=== PATIENT | male | born 1985 ===

== ENCOUNTER 2017-04-13 13:09 | Inpatient (IN) | payer MEDICAID, OTHER ==
--- NOTE | 2017-04-13 14:52 | PCM.PSYCH ---
Initial Psychiatric Evaluation - Initial Psychiatric Evaluation Type of Admission: Voluntary Legal Status: Capacity Chief Complaint (in patient's own words): "Withdrawing" History of Present Illness and Precipitating Events: The pt is seen, chart reviewed and case discussed. He is known to the contract writer from a recent consult. 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 He admits to drinking 15 shots daily x1 year but started first time at age 20. He reports significant wdw sxs and was given librium twice. He denies drug use but smokes 1 ppd cig. Feels somewhat depressed and very anxious. Past psych hx: Denies Medical hx: denies Family psych hx: Denies Current Medications: Active Medications Generic Name Dose Route Start Last Admin Trade Name Freq PRN Reason Stop Dose Admin Clonidine HCl 0.1 mg 04/13/17 14:47 Catapres PO Q4H PRN Symptoms of alcohol withdrawl Folic Acid 1 mg 04/13/17 15:00 Folic Acid PO DAILY DEZ Lorazepam 2 mg 04/13/17 15:00 Ativan PO 04/18/17 14:59 .TAPER DEZ Taper Lorazepam 1 mg 04/13/17 14:47 Ativan PO Q4H PRN Symptoms of alcohol withdrawl Multivitamins 1 tab 04/13/17 15:00 Hexavitamin PO DAILY DEZ Thiamine HCl 100 mg 04/13/17 15:00 Vitamin B1 Tab PO DAILY DEZ Trazodone HCl 100 mg 04/13/17 14:47 Desyrel PO HS PRN Insomnia Past Psychiatric History - Past Psychiatric History Previous Treatment History: None Pertinent Medical Hx (Current Medical&Sleep Prob, Allergies): Allergies Allergy/AdvReac Type Severity Reaction Status Date / Time No Known Allergies Allergy Verified 04/13/17 13:33 No Known Home Med 04/13/17 Review of Systems - Neurological Neurological: UNREMARKABLE - Psychiatric Psychiatric: Abnormal Sleep Pattern, Anxiety. absent: Hallucinations, Homicidal Ideation, Paranoia, Suicidal Ideation Mental Status Examination - Personal Presentation Personal Presentation: Looks older than stated age - Affect Affect: Constricted - Motor Activity Motor Activity: Calm - Reliability in Providing Information Reliability in Providing Information: Good - Speech Speech: Organized - Mood Mood: Anxious - Formal Thought Process Formal Thought Process: No Impairment - Cognitive Functions Orientation: Person, Place, Situation, Time Sensorium: Alert Attention/Concentration: Attentive Estimate of Intelligence: Average Judgement: Intact, as evidence by: Insight regarding need for hospitalization Memory: Recent intact, as evidence by: Ability to recall events of the day, Remote intact, as evidenced by: Abilit to recall sig. life events - Risk Risk: Seizure, Withdrawal, Diminished functioning - Strength & Assets Inventory Strength & Assets Inventory: Employment history, Cooperative - Limitations Limitations: Living alone DSM 5 DX - DSM 5 DSM 5 Diagnosis: Alcohol withdrawal Alcohol use d/o - severe - Recommended/Plan of Treatment Treatment Recommendations and Plan of Treatment: Ativan detox Gabapentin for augmentation As needed meds and vitamins Attend groups and activities [place] for abstinence and CBT for relapse prevention Support and psychoeducation Consider and encourage MAT Refer to after care 33 min Projected ELOS: 4-5 days Prognosis: good w treatment - Smoking Cessation Smoking Cessation Initiated: Yes
--- NOTE | 2017-04-13 14:54 | PCM.BM ---
<RamboMechelleCarissa Karl - Last Filed: 04/13/17 14:52> Treatment Plan Problems - Problems identified on initial assessmt Alcohol use disorder Date Initiated: 04/13/17 Time Initiated: 14:50 Assessment reference: NA Treatment assets and liabiliti Patient Assests: cooperative, insightful, negotiates basic needs Patient Liabilities: poor support system, substance abuse - Milieu Protocol Maintain good personal hygiene: daily Encourage regular showers, daily Remind patient to perform daily oral care, daily Assist patient to perform ADL's, every shift Encourage regular showers, every shift Remind patient to perform daily oral care, every shift Assist patient to perform ADL's Maintain personal safety: daily Educate patient to report safety concerns to staff, daily Monitor environment for contraband/sharps, every shift Educate patient to report safety concerns to staff, every shift Monitor environment for contraband/sharps Medication safety: Monitor for expected outcome, potential side effects: daily, every shift, Assess barriers to learning: daily, every shift, Assess readiness for medication education: daily, every shift Milieu Narrative: Ativan detox Gabapentin for augmentation As needed meds and vitamins Attend groups and activities [place] for abstinence and CBT for relapse prevention Support and psychoeducation Consider and encourage MAT Refer to after care 33 min Discharge/Continuing Care - Treatment Team Participation Patient/Family/SO Statement: Ativan detox Gabapentin for augmentation As needed meds and vitamins Attend groups and activities [place] for abstinence and CBT for relapse prevention Support and psychoeducation Consider and encourage MAT Refer to after care 33 min <Fernando Lainez - Last Filed: 04/13/17 23:22> - Diagnosis (1) Alcohol dependence Status: Acute Interventions: 04/13/17 23:22 * Assess 7x/week regarding severity of withdrawal * Educate regarding risks, benefits, side effects and alternatives of medications * Use Motivational Interviewing for abstinence * Use CBT for relapse prevention * Medication management for withdrawal symptoms * Encourage medication assisted treatment *
--- NOTE | 2017-04-13 15:01 | C.PDOC ---
History Of Present Illness 31 year old male was brought to the emergency department by EMS from [facility] for direct admission for detox of alcohol. Patient denies physical complaints, suicidal ideations, or homicidal ideations. Chief Complaint (Nursing): Substance Abuse History Per: Patient, EMS History/Exam Limitations: no limitations Suicide/Self Injury Attempted (Context): None Severity: None Pain Scale Rating Of: 0 Associated Symptoms: denies: Suicidal Thoughts, Suicidal Plan Involuntary Hold By: None Recent travel outside of the [place]: No Additional History Per: Prior Records Past Medical History Reviewed: Historical Data, Nursing Documentation, Vital Signs Vital Signs: Last Vital Signs Temp 98.6 F 04/13/17 19:55 Pulse 88 04/13/17 19:55 Resp 18 04/13/17 19:55 BP 129/86 04/13/17 19:55 Pulse Ox 98 04/13/17 19:55 - Medical History PMH: Denies: Chronic Kidney Disease Family History: States: Unknown Family Hx - Social History Hx Alcohol Use: Yes Hx Substance Use: No - Immunization History Hx Tetanus Toxoid Vaccination: No Hx Influenza Vaccination: No Hx Pneumococcal Vaccination: No Review Of Systems Constitutional: Negative for: Fever, Chills Cardiovascular: Negative for: Chest Pain, Palpitations Respiratory: Negative for: Shortness of Breath Gastrointestinal: Negative for: Nausea, Vomiting, Abdominal Pain, Diarrhea Psych: Negative for: Suicidal ideation Physical Exam - Physical Exam Appears: Non-toxic, No Acute Distress Skin: Warm, Dry Head: Atraumatic Eye(s): bilateral: Normal Inspection, EOMI Oral Mucosa: Moist Neck: Supple Chest: Symmetrical, No Deformity Cardiovascular: Rhythm Regular Respiratory: Normal Breath Sounds, No Rhonchi, No Wheezing Gastrointestinal/Abdominal: Soft, No Tenderness, No Distention, No Guarding, No Rebound Neurological/Psych: Oriented x3, Normal Speech, Normal Cognition, Normal Cranial Nerves, Normal Motor, Normal Sensation ED Course And Treatment O2 Sat by Pulse Oximetry: 98 (room air ) Disposition - Disposition Disposition: HOSPITALIZED Disposition Time: 16:50 Condition: STABLE - Clinical Impression Clinical Impression: Alcohol dependence - Scribe Statement The provider has reviewed the documentation as recorded by the Scribe Cynthia Harp All medical record entries made by the Scribe were at my direction and personally dictated by me. I have reviewed the chart and agree that the record accurately reflects my personal performance of the history, physical exam, medical decision making, and the department course for this patient. I have also personally directed, reviewed, and agree with the discharge instructions and disposition.
[2017-04-13] MEDS: Multiple Vitamins Tab PO SCH (15:41)
[2017-04-13] MEDS: Bacitracin 500 Units/gm Oint Foilpak UD TOP SCH (22:41)
[2017-04-14] MEDS: Multiple Vitamins Tab PO SCH (09:37)
[2017-04-14] MEDS: Bacitracin 500 Units/gm Oint Foilpak UD TOP SCH ×4 (10:13→22:30)
--- NOTE | 2017-04-14 22:50 | PCM.PYCHPN ---
Psychiatric Progress Note - Psychiatric Progress Note Patient seen today, length of contact: 17 minutes Problems Identified/Issues Discussed: The pt is seen, chart reviewed, case discussed with staff. The pt is compliant with medications and reports no side-effects. Symptoms such as tremors are still present with Increase in HR, no nystagmus, no A/V/H, but needs more time to stabilize. After care discussed, support and psychoeducation given. Diagnostic Results: no new labs DSM 5 Symptoms Update: Alcohol withdrawal Alcohol use d/o - severe Medication Change: Yes (ativan taper) Medical Record Reviewed: Yes Mental Status Examination - Cognitive Function Orientation: Person, Place, Situation, Time Memory: Intact Attention: WNL Concentration: WNL Association: [facility] Fund of Knowledge: [facility] Decription of patient's judgement and insights: FAIR/FAIR - Mood Mood: Anxious - Affect Affect: Constricted - Speech Speech: Appropriate - Formal Thought Process Formal Thought Process: No Impairment - Suicidal Ideation Suicidal Ideation: No - Homicidal Ideation Homicidal Ideation: No Goal/Treatment Plan - Goal/Treatment Plan Need for Continued Stay: Discharge may exacerbated symptoms Progress Toward Problem(s) and Goals/Treatment Plan: Continue medications Support and psychoeducation daily Attend groups and activities daily After care planning by ELIAN Estimated Date of D/C: 04/17/17 - Smoking Cessation Smoking Cessation Initiated: Yes
[2017-04-15] MEDS: Multiple Vitamins Tab PO SCH (09:30)
[2017-04-15] MEDS: Bacitracin 500 Units/gm Oint Foilpak UD TOP SCH ×3 (09:32→17:38)
--- NOTE | 2017-04-15 18:18 | PCM.PYCHPN ---
Psychiatric Progress Note - Psychiatric Progress Note Patient seen today, length of contact: 17 minutes Patient Chief Complaint: I'M FEELING BETTER" Problems Identified/Issues Discussed: The pt is seen, chart reviewed, case discussed with staff. He stated that he is feeling"better." The pt is compliant with medications and reports no side-effects. Symptoms such as tremors are still present with Increase in HR, no nystagmus, no A/V/H, but needs more time to stabilize. After care discussed, support and psychoeducation given. Diagnostic Results: no new labs DSM 5 Symptoms Update: Alcohol withdrawal Alcohol use d/o - severe Medication Change: Yes (ativan taper) Medical Record Reviewed: Yes Mental Status Examination - Cognitive Function Orientation: Person, Place, Situation, Time Memory: Intact Attention: WNL Concentration: WNL Association: WNL Fund of Knowledge: WN Decription of patient's judgement and insights: FAIR/FAIR - Mood Mood: Anxious - Affect Affect: Constricted - Speech Speech: Appropriate - Formal Thought Process Formal Thought Process: No Impairment Psychotic Thoughts and Behaviors: no A/V/H - Suicidal Ideation Suicidal Ideation: No - Homicidal Ideation Homicidal Ideation: No Goal/Treatment Plan - Goal/Treatment Plan Need for Continued Stay: Discharge may exacerbated symptoms Progress Toward Problem(s) and Goals/Treatment Plan: Continue medications Support and psychoeducation daily Attend groups and activities daily After care planning by ELIAN Estimated Date of D/C: 04/17/17 - Smoking Cessation Smoking Cessation Initiated: Yes
[2017-04-16] MEDS: Multiple Vitamins Tab PO SCH (10:16)
[2017-04-16] MEDS: Bacitracin 500 Units/gm Oint Foilpak UD TOP SCH ×3 (12:20→21:40)
--- NOTE | 2017-04-16 15:09 | PCM.PYCHPN ---
Psychiatric Progress Note - Psychiatric Progress Note Patient seen today, length of contact: 17 minutes Patient Chief Complaint: "I am feeling good" Problems Identified/Issues Discussed: The pt is seen, chart reviewed, case discussed with staff. Pt reports sleeping well. Pt plans to attend AA meetings after discharge. The pt is compliant with medications and reports no side-effects. Symptoms are improving but needs more time to stabilize. After care discussed, support and psychoeducation given. Medication Change: Yes (ativan taper) Medical Record Reviewed: Yes Mental Status Examination - Cognitive Function Orientation: Person, Place, Situation, Time Memory: Intact Attention: WNL Concentration: WNL Association: WNL Fund of Knowledge: WNL - Mood Mood: Anxious - Affect Affect: Constricted - Speech Speech: Appropriate - Formal Thought Process Formal Thought Process: No Impairment - Suicidal Ideation Suicidal Ideation: No - Homicidal Ideation Homicidal Ideation: No Goal/Treatment Plan - Goal/Treatment Plan Need for Continued Stay: Discharge may exacerbated symptoms Progress Toward Problem(s) and Goals/Treatment Plan: Ativan detox Gabapentin for augmentation Continue medications Support and psychoeducation daily Attend groups and activities daily After care planning by ELIAN Estimated Date of D/C: 04/17/17
[2017-04-17 06:41] VITALS: RESP 18; O2SAT 97
--- NOTE | 2017-04-17 08:36 | PCM.PYCHDC ---
Mental Status Examination - Mental Status Examination Orientation: Person, Place, Situation, Time Memory: Intact, Recent Mood: Anxious Affect: Constricted Speech: Appropriate Attention: WNL Concentration: WNL Association: WNL Fund of Knowledge: WNL Formal Thought Process: No Impairment Suicidal Ideation: No Current Homicidal Ideation?: No Discharge Summary - Discharge Note Consultations:: List each consultation separately and include: 1. Reason for request. 2. Findings. 3. Follow-up Summary of Hospital Course include:: 1. Description of specific treatment plan utilized for patients during their course of treatmen. 2. Summarize the time- course for resolution of acute symptoms and/or regressed behaviors. 3. Describe issues identified and worked on during hospitalization. 4. Describe medication utilized. 5. Describe medical problems identified and treated. 6. Reassessment of suicide risk Summary of Hospital Course: The pt is seen, chart reviewed and case discussed. He is known to the scientific technical writer from a recent consult. He is now transferred from [facility] ED for alcohol detox He is a 31 yo LM, single with 2 children (aged 5 and 7 who are with their mo), pt lives alone, currently unemployed, was a [employer]. [employer]. He admits to drinking 15 shots daily x1 year but started first time at age 20. He reports significant wdw sxs and was given librium twice. He denies drug use but smokes 1 ppd cig. Feels somewhat depressed and very anxious. Past psych hx: Denies Medical hx: denies Family psych hx: Denies The pt was admitted and started on treatment with psychotherapy, support, psychoeducation and medications. Pt reports sleeping well and denies any nausea or tremors. Pt plans to attend AA meetings and [facility] in [place] 3 times a week upon discharge. [place] and CBT used. The pt attended groups and activities, as well as milieu therapy. All the risks and benefits of medications are discussed and the patient understood and agreed. The pt improved with the treatments provided. After care discussed with the patient. - Diagnosis (1) Alcohol dependence Status: Acute - Final Diagnosis (DSM 5) Condition upon Discharge: STABLE DSM 5: Alcohol withdrawal Alcohol use d/o - severe Disposition: HOME/ ROUTINE Follow-up Treatment Plan: Continue below medications after discharge. Follow after care plan as discussed. Use relapse prevention skills Return to ER or call 911 if suicidal, homicidal or symptoms relapse. Stay away from stress, alcohol and drugs. See primary doctor once a year. Prescriptions/Medication Reconciliation: Gabapentin [Neurontin] 300 mg PO TID #90 cap traZODone [Desyrel] 100 mg PO HS PRN #30 tab PRN Reason: Insomnia
[2017-04-17] MEDS: Bacitracin 500 Units/gm Oint Foilpak UD TOP SCH (09:40)
[2017-04-17] MEDS: Multiple Vitamins Tab PO SCH (09:40)
[2017-04-17 11:04] VITALS: BP 117/75; PULSE 89; TEMP 98.3
== END 2017-04-17 11:25 | disposition home or self-care (01) | DRG 751 ==
LOC: C.ER 13:09 → C.7D 13:37
PROVIDERS: ADMIT Psychiatry & Neurology Psychiatry; ATTEND Psychiatry & Neurology Psychiatry
PROC: HZ2ZZZZ Detoxification Services for Substance Abuse Treatment (ICD-10-PCS; principal; 2017-04-13)
PROC: HZ46ZZZ Group Counseling for Substance Abuse Treatment, Psychoeducation (ICD-10-PCS; 2017-04-13)
PROC: HZ59ZZZ Individual Psychotherapy for Substance Abuse Treatment, Supportive (ICD-10-PCS; 2017-04-13)
DX: F10.239 Alcohol dependence with withdrawal, unspecified (principal); F17.210 Nicotine dependence, cigarettes, uncomplicated

== ENCOUNTER 2017-04-29 22:34 | Observation (INO) | payer MEDICAID ==
--- NOTE | 2017-04-29 23:06 | C.PDOC ---
History Of Present Illness 31 year old male who presents to the ER with acute ETOH intoxication. Patient was seen at [facility] at approximately 15:30 today and told to come to [facility] for detox, however, on arrival patient refuses detox. Denies physical complaints at this time. Chief Complaint (Nursing): Psychiatric Evaluation History Per: Patient History/Exam Limitations: no limitations Onset/Duration Of Symptoms: Hrs Current Symptoms Are (Timing): Still Present Suicide/Self Injury Attempted (Context): None Modifying Factor(s): Alcohol Associated Symptoms: denies: Depression, Suicidal Thoughts, Suicidal Plan Involuntary Hold By: None Recent travel outside of the [place]: No Past Medical History Reviewed: Historical Data, Nursing Documentation, Vital Signs Vital Signs: Last Vital Signs Temp 98 F 04/30/17 02:38 Pulse 82 04/30/17 02:38 Resp 20 04/30/17 02:38 BP 150/79 04/30/17 02:38 Pulse Ox 96 04/30/17 05:20 - Medical History PMH: Anxiety, Depression Surgical History: No Surg Hx - [facility] Procedures DETOXIFICATION SERVICES FOR SUBSTANCE ABUSE TREATMENT (04/13/17) GROUP ORIENTAL RUG STRETCHER FOR SUBSTANCE ABUSE TREATMENT, PSYCHOEDUCATION (04/13/17) INDIV PSYCHOTHERAPY FOR SUBSTANCE ABUSE TREATMENT, SUPPORT (04/13/17) Family History: States: Unknown Family Hx - Social History Hx Alcohol Use: Yes Hx Substance Use: No - Immunization History Hx Tetanus Toxoid Vaccination: No Hx Influenza Vaccination: No Hx Pneumococcal Vaccination: No Review Of Systems Constitutional: Negative for: Fever, Chills Gastrointestinal: Negative for: Nausea, Vomiting, Diarrhea Physical Exam - Physical Exam Appears: Non-toxic, No Acute Distress, Other (ETOH on breath) Skin: Normal Color, Warm, Dry Head: Atraumatic, Normacephalic Oral Mucosa: Moist Chest: Symmetrical, No Tenderness Cardiovascular: Rhythm Regular, No Murmur Respiratory: Normal Breath Sounds, No Rales, No Rhonchi, No Wheezing Gastrointestinal/Abdominal: Soft, No Tenderness Neurological/Psych: Oriented x3, Normal Speech, Normal Cognition, Other (No focal deficits) ED Course And Treatment - Laboratory Results Result Diagrams: 04/29/17 23:40 04/29/17 23:40 O2 Sat by Pulse Oximetry: 96 (Room air) Pulse Ox Interpretation: Normal Progress Note: Blood work and urinalysis ordered. ED OBSERVATION Date of observation admission: 04/29/17 Time of observation admission: 23:15 - Observation admission statement Patient is being placed in observation because:: Acute ETOH intoxication - Goals of Observation Goals of observation are:: Sobriety Disposition Counseled Patient/Family Regarding: Diagnosis - Disposition Disposition Time: 07:00 Condition: STABLE - POA Present On Arrival: None - Clinical Impression Clinical Impression: Alcohol intoxication - Scribe Statement The provider has reviewed the documentation as recorded by the Scribnoé Quiñonez All medical record entries made by the Rayaibnoé were at my direction and personally dictated by me. I have reviewed the chart and agree that the record accurately reflects my personal performance of the history, physical exam, medical decision making, and the department course for this patient. I have also personally directed, reviewed, and agree with the discharge instructions and disposition. Physician Patient Turnover Patient Signed Over To: Kati Stephens Handoff Comments: pending sobriety
[2017-04-29 23:37] LABS: RBC URINE < 1 /hpf (0-3); URINE BILIRUBIN NEGATIVE (NEGATIVE); URINE BLOOD NEGATIVE (NEGATIVE); URINE COLOR Straw (YELLOW); URINE GLUCOSE (UA) NORMAL (Normal); URINE KETONE NEGATIVE (NEGATIVE); URINE LEUKOCYTE ESTERASE NEG Leu/uL (Negative); URINE PROTEIN NEGATIVE (NEGATIVE); URINE UROBILINOGEN NORMAL mg/dL (0.2-1.0); WBC URINE < 1 /hpf (0-5)
[2017-04-29 23:45] LABS: BASO # 0.1 K/uL (0.0-0.2); BASO % 0.7 % (0.0-2.0); EOS # 0.6 K/uL (0.0-0.7); EOS % 5.2 % (0.0-4.0); LYMPH # 3.4 K/uL (1.0-4.3); LYMPH % 30.3 % (20.0-40.0); MEAN CELL VOLUME 93.6 fL (80.0-94.0); MEAN CORPUSCULAR HEMOGLOBIN 32.7 pg (27.0-31.0); MEAN PLATELET VOLUME 7.4 fL (7.2-11.7); MONO # 0.5 K/uL (0.0-0.8); MONO % 4.5 % (0.0-10.0); NRBC % 0.1 % (0.0-2.0); RED CELL DISTRIBUTION WIDTH 13.4 % (11.5-14.5); WHITE BLOOD COUNT 11.3 K/uL (4.8-10.8)
[2017-04-29 23:53] LABS: CHLORIDE 99 mmol/L (98-107)
[2017-04-29 23:54] LABS: POTASSIUM 3.3 mmol/L (3.6-5.2); SODIUM 143 mmol/L (132-148)
[2017-04-29 23:56] LABS: AST/SGOT 144 U/L (17-59); BILIRUBIN,TOTAL 0.8 mg/dL (0.2-1.3); CARBON DIOXIDE 27 mmol/L (22-30); GFR AFRICAN-AMERICAN > 60
[2017-04-29 23:57] LABS: ALB/GLOB RATIO 1.2 (1.0-2.1); ALKALINE PHOSPHATASE 108 U/L (38-126); ALT/SGPT 179 U/L (21-72); BLOOD UREA NITROGEN 3 mg/dL (9-20); GLUCOSE,RANDOM 116 mg/dL (75-110)
[2017-04-30 00:07] LABS: ALCOHOL SERUM 434 mg/dl (0-10)
[2017-04-30] MEDS ORDERED: Potassium Chloride 20 mEq ER Tab PO STA (02:17)
[2017-04-30] MEDS ORDERED: Potassium Chloride 20 mEq ER Tab PO ONE (02:23)
[2017-04-30 05:53] VITALS: TEMP 97.2
[2017-04-30 08:35] VITALS: BP 137/78; PULSE 76; RESP 17; O2SAT 97
== END 2017-04-30 10:38 | disposition home or self-care (01) ==
LOC: C.ER 22:34 → C.9OBSV 04-30 00:12
PROVIDERS: ADMIT Emergency Medicine; ATTEND Emergency Medicine
DX: F10.229 Alcohol dependence with intoxication, unspecified (principal); F41.8 Other specified anxiety disorders
CPT/HCPCS: 80053; 80320; 80324; 80345; 80346; 80349; 80353; 80358; 80361; 81001; 83992; 85025; G0378

== ENCOUNTER 2017-05-01 17:31 | Emergency (ER) | payer MEDICAID ==
[2017-05-01 18:33] VITALS: BP 149/84; PULSE 86; RESP 18; TEMP 98.2; O2SAT 99
--- NOTE | 2017-05-01 18:41 | C.PDOC ---
History Of Present Illness 31 y/o male presents to ED requesting detox from ETOH. Patient reports last drink prior to arrival. Patient has no physical complaints at this time. Time Seen by Provider: 05/01/17 17:57 Chief Complaint (Nursing): Substance Abuse History Per: Patient History/Exam Limitations: no limitations Onset/Duration Of Symptoms: Hrs Current Symptoms Are (Timing): Still Present Suicide/Self Injury Attempted (Context): None Modifying Factor(s): Alcohol Past Medical History Reviewed: Historical Data, Nursing Documentation, Vital Signs Vital Signs: Last Vital Signs Temp 98.2 F 05/01/17 18:31 Pulse 86 05/01/17 18:31 Resp 18 05/01/17 18:31 BP 149/84 05/01/17 18:31 Pulse Ox 99 05/01/17 18:42 - Medical History PMH: Anxiety, Depression - [facility] Procedures DETOXIFICATION SERVICES FOR SUBSTANCE ABUSE TREATMENT (04/13/17) GROUP GRADUATION COACH FOR SUBSTANCE ABUSE TREATMENT, PSYCHOEDUCATION (04/13/17) INDIV PSYCHOTHERAPY FOR SUBSTANCE ABUSE TREATMENT, SUPPORT (04/13/17) Family History: States: No Known Family Hx - Social History Hx Alcohol Use: Yes Hx Substance Use: No - Immunization History Hx Tetanus Toxoid Vaccination: No Hx Influenza Vaccination: No Hx Pneumococcal Vaccination: No Review Of Systems Except As Marked, All Systems Reviewed And Found Negative. Constitutional: Negative for: Fever, Chills Eyes: Negative for: Vision Change Cardiovascular: Negative for: Chest Pain Respiratory: Negative for: Shortness of Breath Gastrointestinal: Negative for: Nausea, Vomiting Skin: Negative for: Rash Psych: Negative for: Anxiety Physical Exam - Physical Exam Appears: Other (ETOH on breath) Skin: Normal Color, Warm, Dry, No Rash Head: Atraumatic, Normacephalic Eye(s): bilateral: Normal Inspection Oral Mucosa: Moist Neck: Normal ROM, Supple Chest: Symmetrical Cardiovascular: Rhythm Regular, No Murmur Respiratory: Normal Breath Sounds, No Rales, No Rhonchi, No Wheezing Gastrointestinal/Abdominal: Soft, No Tenderness, No Guarding, No Rebound Extremity: Normal ROM, Capillary Refill (<2 seconds) Neurological/Psych: Oriented x3, Normal Speech, Normal Cognition ED Course And Treatment O2 Sat by Pulse Oximetry: 99 (RA) Pulse Ox Interpretation: Normal Medical Decision Making Medical Decision Making: Patient had detox 2 weeks ago and was discharged with detox centers and information Disposition - Disposition Referrals: [facility] [Outside] [facility] [Outside] Disposition: HOME/ ROUTINE Disposition Time: 18:20 Condition: GOOD Additional Instructions: Thank you for letting us take care of you today. Your provider was Dr. Muniz. You were treated for alcohol dependence. The emergency medical care you received today was directed at your acute symptoms. If you were prescribed any medication, please fill it and take as directed. It may take several days for your symptoms to resolve. Return to the Emergency Department if your symptoms worsen, do not improve, or if you have any other problems. Please contact your doctor or call one of the physicians/clinics you have been referred to that are listed on the Patient Visit Information form that is included in your discharge packet. Bring any paperwork you were given at discharge with you along with any medications you are taking to your follow up visit. Our treatment cannot replace ongoing medical care by a primary care provider (PCP) outside of the emergency department. Thank you for allowing the [facility] team to be part of your care today. Follow up with your primary doctor in 2-3 days for re-evaluation and further management. Please use the detox list provided for detox programs. Instructions: Alcohol Dependence (ED) Forms: [employer] (Serbian) - Clinical Impression Clinical Impression: Alcohol dependence - PA / MEDICAL ASSISTANT INSTRUCTOR / Resident Statement MD/DO has examined the patient and agrees with the treatment plan. - Scribe Statement The provider has reviewed the documentation as recorded by the Maranda Suh All medical record entries made by the Rayaibnoé were at my direction and personally dictated by me. I have reviewed the chart and agree that the record accurately reflects my personal performance of the history, physical exam, medical decision making, and the department course for this patient. I have also personally directed, reviewed, and agree with the discharge instructions and disposition.
== END 2017-05-01 18:32 | disposition home or self-care (01) ==
LOC: C.ER 17:31
DX: F10.20 Alcohol dependence, uncomplicated (principal); Y90.9 Presence of alcohol in blood, level not specified

== ENCOUNTER 2017-05-27 05:32 | Inpatient (IN) | payer MEDICAID, OTHER ==
[2017-05-27 06:42] LABS: BASO % 0.5 % (0.0-2.0); EOS # 0.6 K/uL (0.0-0.7); EOS % 5.9 % (0.0-4.0); LYMPH # 3.5 K/uL (1.0-4.3); LYMPH % 34.5 % (20.0-40.0); MEAN CELL VOLUME 94.7 fL (80.0-94.0); MEAN CORPUSCULAR HEMOGLOBIN 33.4 pg (27.0-31.0); MEAN CORPUSCULAR HGB CONC 35.3 g/dL (33.0-37.0); MEAN PLATELET VOLUME 7.6 fL (7.2-11.7); MONO # 0.8 K/uL (0.0-0.8); NRBC % 0.1 % (0.0-2.0); RED CELL DISTRIBUTION WIDTH 14.5 % (11.5-14.5); WHITE BLOOD COUNT 10.1 K/uL (4.8-10.8)
[2017-05-27 06:44] LABS: RBC URINE < 1 /hpf (0-3); URINE BILIRUBIN NEGATIVE (NEGATIVE); URINE BLOOD NEGATIVE (NEGATIVE); URINE COLOR Straw (YELLOW); URINE GLUCOSE (UA) NORMAL (Normal); URINE KETONE NEGATIVE (NEGATIVE); URINE LEUKOCYTE ESTERASE NEG Leu/uL (Negative); URINE PROTEIN 1+ mg/dL (NEGATIVE); URINE UROBILINOGEN NORMAL mg/dL (0.2-1.0); WBC URINE < 1 /hpf (0-5)
--- NOTE | 2017-05-27 06:51 | C.PDOC ---
History Of Present Illness 31 year old male presents to the ED requesting alcohol detox. Patient also requests psychiatric evaluation for anger and depression. Patient admits he drinks alcohol almost every day. He states he was drinking yesterday and suspects he may have had a seizure. Patient denies suicidal/homicidal ideation at this time. Time Seen by Provider: 05/27/17 06:24 Chief Complaint (Nursing): Substance Abuse History Per: Patient History/Exam Limitations: no limitations Onset/Duration Of Symptoms: Hrs Current Symptoms Are (Timing): Still Present Suicide/Self Injury Attempted (Context): None Modifying Factor(s): Alcohol Associated Symptoms: Anger, Depression. denies: Suicidal Thoughts, Suicidal Plan Involuntary Hold By: None Recent travel outside of the [place]: No Additional History Per: Patient Past Medical History Reviewed: Historical Data, Nursing Documentation, Vital Signs Vital Signs: Last Vital Signs Temp 97.9 F 05/27/17 05:57 Pulse 83 05/27/17 05:57 Resp 20 05/27/17 05:57 BP 153/97 H 05/27/17 05:57 Pulse Ox 97 05/27/17 06:55 - Medical History PMH: Anxiety, Depression Surgical History: No Surg Hx - [facility] DETOXIFICATION SERVICES FOR SUBSTANCE ABUSE TREATMENT (04/13/17) GROUP EMERGENCY DEPARTMENT DIRECTOR FOR SUBSTANCE ABUSE TREATMENT, PSYCHOEDUCATION (04/13/17) INDIV PSYCHOTHERAPY FOR SUBSTANCE ABUSE TREATMENT, SUPPORT (04/13/17) Family History: States: Unknown Family Hx - Social History Hx Alcohol Use: Yes Hx Substance Use: No - Immunization History Hx Tetanus Toxoid Vaccination: No Hx Influenza Vaccination: No Hx Pneumococcal Vaccination: No Review Of Systems Psych: Positive for: Depression, Other (alcohol detox ). Negative for: Suicidal ideation Physical Exam - Physical Exam Appears: Non-toxic, No Acute Distress Skin: Normal Color, Warm, Dry Head: Atraumatic, Normacephalic Eye(s): bilateral: Normal Inspection Oral Mucosa: Moist Neck: Supple Chest: Symmetrical, No Deformity Cardiovascular: Rhythm Regular, No Murmur Respiratory: Normal Breath Sounds, No Rales, No Rhonchi, No Wheezing Extremity: Normal ROM, Capillary Refill (less than 2 seconds ) Neurological/Psych: Oriented x3, Normal Speech, Normal Cognition Gait: Steady ED Course And Treatment - Laboratory Results Result Diagrams: 05/27/17 06:39 O2 Sat by Pulse Oximetry: 97 (on RA) Pulse Ox Interpretation: Normal Progress Note: labs ordered. Disposition - Disposition Disposition Time: 06:58 Condition: STABLE Forms: [facility] (Yakut) - Clinical Impression Clinical Impression: Drug abuse, Alcohol dependence - PA / PATIENT REGISTRATION SPECIALIST / Resident Statement MD/DO has reviewed & agrees with the documentation as recorded. - Scribe Statement The provider has reviewed the documentation as recorded by the Scribe (Tonya Troncoso) All medical record entries made by the Scribe were at my direction and personally dictated by me. I have reviewed the chart and agree that the record accurately reflects my personal performance of the history, physical exam, medical decision making, and the department course for this patient. I have also personally directed, reviewed, and agree with the discharge instructions and disposition. Physician Patient Turnover Patient Signed Over To: Kaur Murray Handoff Comments: labs and psych evaluation are pending
[2017-05-27 06:57] LABS: CHLORIDE 101 mmol/L (98-107); POTASSIUM 3.6 mmol/L (3.6-5.2); SODIUM 146 mmol/L (132-148)
[2017-05-27 06:59] LABS: ALB/GLOB RATIO 1.3 (1.0-2.1); AST/SGOT 212 U/L (17-59); BILIRUBIN,TOTAL 0.6 mg/dL (0.2-1.3); CARBON DIOXIDE 23 mmol/L (22-30); GFR AFRICAN-AMERICAN > 60; TOTAL PROTEIN 8.5 g/dL (6.3-8.3)
[2017-05-27 07:00] LABS: ALKALINE PHOSPHATASE 91 U/L (38-126); ALT/SGPT 258 U/L (21-72); BLOOD UREA NITROGEN 5 mg/dL (9-20); CALCIUM 9.3 mg/dl (8.6-10.4); GLUCOSE,RANDOM 106 mg/dL (75-110)
[2017-05-27 07:37] LABS: ALCOHOL SERUM 411 mg/dl (0-10)
[2017-05-27] MEDS ORDERED: Sodium Chloride 0.9% 1,000 ML IV SCH (17:15)
[2017-05-27] MEDS ORDERED: Magnesium Sulfate 1 gm in D5W 1 GM/100 ML BAG IVPB ONE ×2 (17:51→21:00)
--- NOTE | 2017-05-27 18:38 | CP.PCM.HP ---
History of Present Illness - History of Present Illness History of Present Illness: HPI: Patient is a 31 y/o male with a history of alcoholism who presents to the ED for detox. Patient says he came yesterday early in the morning but was told there were no beds for detox so he has been in the ED since then. Patient is complaining of nausea, vomiting x1, and tremor that started yesterday and have progressively become worse. Patient says he is a heavy drinker and for the past week he has been drinking 10-20 shots of vodka per day with an occasional beer. Patient says his last drink was yesterday about half an hour before he arrived around 3:00 AM. Patient says he has episodes of binge drinking with breaks in between. Patient admits to "cold sweats", weakness, SOB, loss of appetite, numbness and tingling in hands/feet, and change in vision saying it looks like "things are wiggling". Patient says he feels depressed and is stressed because he recently lost his job, which is why he was drinking so much. Patient denies fever, headache, chest pain, abdominal pain, diarrhea, constipation, dysuria, frequency, LE pain/swelling, rashes, recent illness, and change in weight. PMH: alcoholism Meds: * gabapentin 300 mg TID * Trazadone HS * Multivitamin PSH: denies Allergies: NKDA FamHx: HTN (mother), Epilepsy (mother), DM (father) SocHx: * Smokes 1-1.5 PPD for 10 years * 10-20 shots of vodka per day with an occasional beer * Denies recent drug use; Hx of marijuana use * Occupation: just lost his job Present on Admission - Present on Admission Any Indicators Present on Admission: No Review of Systems - Review of Systems All systems: reviewed and no additional remarkable complaints except (as per HPI ) Past Patient History - Infectious Disease Hx of Infectious Diseases: None - Past Medical History & Family History Past Medical History?: No - Past Social History Smoking Status: Heavy Smoker > 10 Cigarettes Daily - CARDIAC Hx Cardiac Disorders: No Hx Hypertension: No - PULMONARY Hx Tuberculosis: No - NEUROLOGICAL HX Cerebrovascular Accident: No Hx Seizures: No - HEENT Hx HEENT Problems: No - RENAL Hx Chronic Kidney Disease: No - ENDOCRINE/METABOLIC Hx Endocrine Disorders: No - HEMATOLOGICAL/ONCOLOGICAL Hx Cancer: No Hx Human Immunodeficiency Virus (HIV): No - INTEGUMENTARY Hx Dermatological Problems: No - MUSCULOSKELETAL/RHEUMATOLOGICAL Hx Musculoskeletal Disorders: No Hx Falls: Yes - GASTROINTESTINAL Hx Gastrointestinal Disorders: No - GENITOURINARY/GYNECOLOGICAL Hx Sexually Transmitted Disorders: No - PSYCHIATRIC Hx Anxiety: Yes Hx Depression: Yes Hx Substance Use: No - SURGICAL HISTORY Hx Surgeries: No - ANESTHESIA Hx Anesthesia: No Meds Allergies/Adverse Reactions: Allergies Allergy/AdvReac Type Severity Reaction Status Date / Time No Known Allergies Allergy Verified 04/29/17 22:47 Physical Exam - Constitutional Appears: No Acute Distress - Head Exam Head Exam: NORMAL INSPECTION - Eye Exam Eye Exam: EOMI Additional comments: OS: conjunctival hemorrhage - ENT Exam ENT Exam: Mucous Membranes Dry - Respiratory Exam Respiratory Exam: Clear to Auscultation Bilateral, NORMAL BREATHING PATTERN. absent: Accessory Muscle Use, Rales, Rhonchi, Wheezes, Respiratory Distress - Cardiovascular Exam Cardiovascular Exam: REGULAR RHYTHM, +S1, +S2. absent: Bradycardia, Tachycardia , Gallop, Rubs, Systolic Murmur - GI/Abdominal Exam GI & Abdominal Exam: Normal Bowel Sounds, Soft, Tenderness (epigastric ). absent: Distended - Extremities Exam Extremities exam: Positive for: normal inspection, pedal pulses present. Negative for: pedal edema, tenderness - Back Exam Back exam: NORMAL INSPECTION. absent: paraspinal tenderness, rash noted, vertebral tenderness - Neurological Exam Neurological exam: Alert, Oriented x3 Additional comments: tremor of b/l UE - Psychiatric Exam Psychiatric exam: Depressed - Skin Skin Exam: Intact, Normal Color, Warm Results - Vital Signs Recent Vital Signs: Last Vital Signs Temp 97.9 F 05/27/17 13:32 Pulse 81 05/27/17 15:34 Resp 14 05/27/17 15:34 BP 141/78 05/27/17 15:34 Pulse Ox 95 05/27/17 15:34 - Labs Result Diagrams: 05/27/17 06:39 05/27/17 06:39 Labs: Laboratory Results - last 24 hr 05/27/17 05/27/17 05/27/17 06:39 06:39 06:39 WBC 10.1 RBC 5.28 Hgb 17.6 Hct 50.0 MCV 94.7 H MCH 33.4 H MCHC 35.3 RDW 14.5 Plt Count 213 MPV 7.6 Neut % (Auto) 51.1 Lymph % (Auto) 34.5 Gregory % (Auto) 8.0 Eos % (Auto) 5.9 H Baso % (Auto) 0.5 Neut # 5.2 Lymph # 3.5 Gregory # 0.8 Eos # 0.6 Baso # 0.0 Sodium 146 Potassium 3.6 Chloride 101 Carbon Dioxide 23 Anion Gap 26 H BUN 5 L Creatinine 0.5 L Est GFR ( Amer) > 60 Est GFR (Non-Af Amer) > 60 Random Glucose 106 Calcium 9.3 Total Bilirubin 0.6 AST 212 H ALT 258 H D Alkaline Phosphatase 91 Total Protein 8.5 H Albumin 4.7 Globulin 3.8 Albumin/Globulin Ratio 1.3 Urine Color Straw Urine Clarity Clear Urine pH 7.0 Ur Specific [place] 1.005 Urine Protein 1+ H Urine Glucose (UA) Normal Urine Ketones Negative Urine Blood Negative Urine Nitrate Negative Urine Bilirubin Negative Urine Urobilinogen Normal Ur Leukocyte Esterase Neg Urine WBC (Auto) < 1 Urine RBC (Auto) < 1 Salicylates Urine Opiates Screen Urine Methadone Screen Acetaminophen Ur Barbiturates Screen Ur Phencyclidine Scrn Ur Amphetamines Screen U Benzodiazepines Scrn U Oth Cocaine Metabols U Cannabinoids Screen Alcohol, Quantitative 411 H 05/27/17 05/27/17 06:39 06:39 WBC RBC Hgb Hct MCV MCH MCHC RDW Plt Count MPV Neut % (Auto) Lymph % (Auto) Gregory % (Auto) Eos % (Auto) Baso % (Auto) Neut # Lymph # Gregory # Eos # Baso # Sodium Potassium Chloride Carbon Dioxide Anion Gap BUN Creatinine Est GFR ( Amer) Est GFR (Non-Af Amer) Random Glucose Calcium Total Bilirubin AST ALT Alkaline Phosphatase Total Protein Albumin Globulin Albumin/Globulin Ratio Urine Color Urine Clarity Urine pH Ur Specific [place] Urine Protein Urine Glucose (UA) Urine Ketones Urine Blood Urine Nitrate Urine Bilirubin Urine Urobilinogen Ur Leukocyte Esterase Urine WBC (Auto) Urine RBC (Auto) Salicylates < 1.0 Urine Opiates Screen Negative Urine Methadone Screen Negative Acetaminophen < 10.0 L Ur Barbiturates Screen Negative Ur Phencyclidine Scrn Negative Ur Amphetamines Screen Negative U Benzodiazepines Scrn Negative U Oth Cocaine Metabols Negative U Cannabinoids Screen Negative Alcohol, Quantitative Assessment & Plan - Assessment and Plan (Free Text) Assessment: Alcohol Withdrawal * Librium taper * Ativan 1 mg Q2 PRN * Folic acid 1 mg PO QD * Thiamine 100 mg PO QD * NS @100/h * Vitals Q6 * f/u morning labs PPX * Seizure precautions * Lovenox 40 mg SC QD * Zofran 4mg IV
[2017-05-27] MEDS: Sodium Chloride 0.9% 1,000 ML IV SCH (20:41)
[2017-05-28] MEDS: Sodium Chloride 0.9% 1,000 ML IV SCH ×5 (03:45→23:45)
[2017-05-28] MEDS ORDERED: Enoxaparin 40 mg Syringe SC SCH (10:00)
--- NOTE | 2017-05-28 11:23 | CP.PCM.PN ---
Addendum entered and electronically signed by Sarah Caba DO 05/28/17 17:11: f/u Psychiatry evaluation Original Note: <Sarah Caba - Last Filed: 05/28/17 17:08> Subjective - Date & Time of Evaluation Date of Evaluation: 05/28/17 Time of Evaluation: 11:23 - Subjective Subjective: Internal Medicine Progress note for Dr. Anderson Patient seen and examined at bedside. Patient states his last drink was on 05/26/17, Patient states his tremors are better. Patient denies headaches, fever, chills, nausea, vomiting, Diarrhea. Patient denies having seizures. He states that he has been hospitalized for alcohol withdrawal in the past. Patient states that he is not feeling good because his kids are moving to [place] with his children's mother. Patient states on his good days, he drinks 5 shots of vodka and on his bad days he drinks 10-20 shots of vodka. Patient states he has upper chest pain that radiates down left arm, which has been happening more frequently. Patient states that it happens at rest. Objective - Vital Signs/Intake and Output Vital Signs (last 24 hours): Temp Pulse Resp BP Pulse Ox 97.7 F 69 20 151/81 H 95 05/28/17 08:00 05/28/17 08:00 05/28/17 08:00 05/28/17 08:00 05/28/17 08:00 Intake and Output: 05/28/17 05/28/17 06:59 18:59 Intake Total 700 Balance 700 - Medications Medications: Current Medications Chlordiazepoxide (Librium) 25 mg PO Q6H [facility] PRN Reason: Taper Stop: 05/31/17 17:59 Last Admin: 05/28/17 06:52 Dose: 25 mg Enoxaparin Sodium (Lovenox) 40 mg SC DAILY [facility] Last Admin: 05/28/17 10:49 Dose: 40 mg Folic Acid (Folic Acid) 1 mg PO DAILY [facility] Last Admin: 05/28/17 10:49 Dose: 1 mg Sodium Chloride (Sodium Chloride 0.9%) 1,000 mls @ 100 mls/hr IV .Q10H [facility] Last Admin: 05/28/17 06:50 Dose: 100 mls/hr Influenza Virus Vaccine (Afluria) 45 mcg IM .ONCE ONE Stop: 05/30/17 10:01 Lorazepam (Ativan) 1 mg IVP Q2H PRN PRN Reason: Anxiety Last Admin: 05/28/17 11:05 Dose: 1 mg Lorazepam (Ativan) 1 mg IVP ONCE ONE Stop: 05/28/17 11:23 Ondansetron HCl (Zofran Inj) 4 mg IVP Q6 PRN PRN Reason: Nausea/Vomiting Pneumococcal Polyvalent Vaccine (Pneumovax 23 Vaccine) 0.5 ml IM .ONCE ONE Stop: 05/30/17 10:01 Thiamine HCl (Vitamin B1 Tab) 100 mg PO DAILY [facility] Last Admin: 05/28/17 10:49 Dose: 100 mg - Labs Labs: 05/27/17 06:39 05/27/17 06:39 - Constitutional Appears: Non-toxic - Head Exam Head Exam: NORMAL INSPECTION - Eye Exam Eye Exam: EOMI, Normal appearance - ENT Exam ENT Exam: Mucous Membranes Moist - Respiratory Exam Respiratory Exam: NORMAL BREATHING PATTERN. absent: Accessory Muscle Use, Respiratory Distress - Cardiovascular Exam Cardiovascular Exam: REGULAR RHYTHM. absent: Bradycardia, Tachycardia - GI/Abdominal Exam GI & Abdominal Exam: Normal Bowel Sounds - Extremities Exam Extremities Exam: Full ROM. absent: Pedal Edema - Neurological Exam Neurological Exam: Alert, Awake, Oriented x3 Additional comments: poor coordination with the nose to finger to nose test mild tremors noted on extension of hands from body. - Psychiatric Exam Psychiatric exam: Depressed, Normal Affect - Skin Skin Exam: Dry, Intact, Normal Color, Warm Assessment and Plan - Assessment and Plan (Free Text) Assessment: 31 M ETOH abuse admitted for alcohol detoxification Alcohol Withdrawal * Librium taper * Ativan 1 mg Q2 PRN, for tremors and signs of Delirium tremens * Folic acid 1 mg PO QD * Thiamine 100 mg PO QD * NS @100/h * Vitals Q6 * f/u morning labs Chest Pain * SHIMON Panel * EKG PPX * Seizure precautions, CIWA protocol assessment per nursing * Lovenox 40 mg SC QD * Zofran 4mg IV <Clari Anderson V - Last Filed: 05/29/17 09:54> Objective - Vital Signs/Intake and Output Vital Signs (last 24 hours): Temp Pulse Resp BP Pulse Ox 99.2 F 71 20 127/78 95 05/29/17 08:00 05/29/17 08:00 05/29/17 08:00 05/29/17 08:00 05/29/17 08:00 Intake and Output: 05/29/17 05/29/17 06:59 18:59 Intake Total 3080 Balance 3080 - Medications Medications: Current Medications Chlordiazepoxide (Librium) 25 mg PO Q8H [facility] PRN Reason: Taper Stop: 05/31/17 17:59 Last Admin: 05/29/17 02:00 Dose: 25 mg Folic Acid (Folic Acid) 1 mg PO DAILY [facility] Last Admin: 05/28/17 10:49 Dose: 1 mg Gabapentin (Neurontin) 300 mg PO TID [facility] Last Admin: 05/28/17 17:23 Dose: 300 mg Sodium Chloride (Sodium Chloride 0.9%) 1,000 mls @ 100 mls/hr IV .Q10H [facility] Last Admin: 05/29/17 06:16 Dose: 100 mls/hr Influenza Virus Vaccine (Afluria) 45 mcg IM .ONCE ONE Stop: 05/30/17 10:01 Lorazepam (Ativan) 1 mg IVP Q6H PRN PRN Reason: Breakthru objective ETOH wdw Ondansetron HCl (Zofran Inj) 4 mg IVP Q6 PRN PRN Reason: Nausea/Vomiting Pneumococcal Polyvalent Vaccine (Pneumovax 23 Vaccine) 0.5 ml IM .ONCE ONE Stop: 05/30/17 10:01 Thiamine HCl (Vitamin B1 Tab) 100 mg PO DAILY [facility] Last Admin: 05/28/17 10:49 Dose: 100 mg Trazodone HCl (Desyrel) 100 mg PO HS PRN PRN Reason: Insomnia - Labs Labs: 05/29/17 07:09 05/29/17 07:09 Attending/Attestation - Attestation I have personally seen and examined this patient.: Yes I have fully participated in the care of the patient.: Yes I have reviewed all pertinent clinical information, including history, physical exam and plan: Yes Notes (Text): This is late computer entry for 05/28/17. Patient seen, examined and case discussed with day-time resident. Patient reports heavy alcohol use about 10-20 beers, unclear how many ounces daily, which was triggered by his and kids leaving to another state just recently. Patient reports last drink was on Sunday. Patient had reported chest pain during the initial evaluation with the resident but denies with me currently. Patient to be evaluated by psychiatry given alcohol and depressive symptoms. Patient is currently on Librium taper. During interview, patent is tremulous over the upper extremities and has poor coordination in finger to nose. Will continue to monitor on telemetry and monitor for signs and symptoms of DTs Assessment/Plan Alcohol Withdrawal * Monitor on telemetry * Librium taper (started on 05/27/17) * will monitor LFTs * Ativan 1 mg IVP Q2 PRN, for tremors and signs of Delirium tremens * Folic acid 1 mg PO QDaily * Thiamine 100 mg PO Qdaily * NS @100/hours Chest Pain * likely secondary to withdrawal; SHIMON X3 and EKG ordered; troponin negative Elevated Transaminitis * Likely secondary to alcohol use * Will check abdominal US r/o pathologies Depressive symptoms with alcohol use * Will consult Psychiatry: Dr Lainez * Pastoral care PPX * Seizure precautions, CIWA protocol assessment per nursing * Lovenox 40 mg SC QDaily * Zofran 4mg IV Q 6HR PRN nausea
[2017-05-28 12:07] LABS: EOS # 0.8 K/uL (0.0-0.7); EOS % 9.9 % (0.0-4.0); HEMATOCRIT 46.8 % (35.0-51.0); LYMPH # 0.7 K/uL (1.0-4.3); LYMPH % 8.5 % (20.0-40.0); MEAN CELL VOLUME 95.2 fL (80.0-94.0); MEAN CORPUSCULAR HEMOGLOBIN 33.1 pg (27.0-31.0); MEAN CORPUSCULAR HGB CONC 34.8 g/dL (33.0-37.0); MEAN PLATELET VOLUME 8.3 fL (7.2-11.7); MONO # 2.2 K/uL (0.0-0.8); MONO % 28.2 % (0.0-10.0); NRBC % 0.1 % (0.0-2.0); PLATELET COUNT 144 K/uL (130-400); RED CELL DISTRIBUTION WIDTH 14.4 % (11.5-14.5); WHITE BLOOD COUNT 7.9 K/uL (4.8-10.8)
[2017-05-28 12:21] LABS: CHLORIDE 97 mmol/L (98-107)
[2017-05-28 12:22] LABS: SODIUM 136 mmol/L (132-148)
[2017-05-28 12:23] LABS: POTASSIUM 3.6 mmol/L (3.6-5.2)
[2017-05-28 12:25] LABS: ALB/GLOB RATIO 1.4 (1.0-2.1); ALKALINE PHOSPHATASE 76 U/L (38-126); ALT/SGPT 195 U/L (21-72); AST/SGOT 141 U/L (17-59); BILIRUBIN,TOTAL 1.9 mg/dL (0.2-1.3); BLOOD UREA NITROGEN 8 mg/dL (9-20); CARBON DIOXIDE 26 mmol/L (22-30); GFR AFRICAN-AMERICAN > 60; GLUCOSE,RANDOM 118 mg/dL (75-110); TOTAL PROTEIN 7.6 g/dL (6.3-8.3)
[2017-05-28 12:26] LABS: CALCIUM 9.1 mg/dl (8.6-10.4); MAGNESIUM 1.8 mg/dL (1.6-2.3)
--- NOTE | 2017-05-28 12:26 | PCM.PSYCH ---
Initial Psychiatric Evaluation - Initial Psychiatric Evaluation Type of Admission: Voluntary Legal Status: Capacity Chief Complaint (in patient's own words): "Alcohol" History of Present Illness and Precipitating Events: He is seen, chart reviewed and case discussed. Consult was requested for his alcohol use He is known from previous admissions He is a 31 yo LM, single with 2 children (aged 5 and 7 who are with their mo), pt lives alone, currently unemployed, was a [employer]. He admits to drinking 15 shots daily x1 year but started first time at age 20. He reports significant wdw sxs and was given librium already. He denies drug use but smokes 1 ppd cig. Feels somewhat depressed and very anxious. He also adds that his ex moved to [place] with their 2 children Past psych hx: Denies Medical hx: denies Family psych hx: Denies Current Medications: Active Medications Generic Name Dose Route Start Last Admin Trade Name Freq PRN Reason Stop Dose Admin Chlordiazepoxide 25 mg 05/27/17 18:00 05/28/17 11:47 Librium PO 05/31/17 17:59 25 mg Q6H [facility] Administration Taper Enoxaparin Sodium 40 mg 05/28/17 10:00 05/28/17 10:49 Lovenox SC 40 mg DAILY [facility] Administration Folic Acid 1 mg 05/28/17 10:00 05/28/17 10:49 Folic Acid PO 1 mg DAILY [facility] Administration Sodium Chloride 1,000 mls @ 100 mls/hr 05/27/17 17:45 05/28/17 06:50 Sodium Chloride 0.9% IV 100 mls/hr .Q10H [facility] Administration Influenza Virus Vaccine 45 mcg 05/30/17 10:00 Afluria IM 05/30/17 10:01 .ONCE ONE Lorazepam 1 mg 05/27/17 17:52 05/28/17 11:05 Ativan IVP 1 mg Q2H PRN Administration Anxiety Ondansetron HCl 4 mg 05/27/17 18:49 Zofran Inj IVP Q6 PRN Nausea/Vomiting Pneumococcal Polyvalent Vaccine 0.5 ml 05/30/17 10:00 Pneumovax 23 Vaccine IM 05/30/17 10:01 .ONCE ONE Thiamine HCl 100 mg 05/28/17 10:00 05/28/17 10:49 Vitamin B1 Tab PO 100 mg DAILY [facility] Administration Past Psychiatric History - Past Psychiatric History Previous Treatment History: None Pertinent Medical Hx (Current Medical&Sleep Prob, Allergies): Allergies Allergy/AdvReac Type Severity Reaction Status Date / Time No Known Allergies Allergy Verified 04/29/17 22:47 Gabapentin [Neurontin] 300 mg PO TID #90 cap 04/17/17 traZODone [Desyrel] 100 mg PO HS PRN #30 tab 04/17/17 Multivitamin [Multivitamins] 1 each PO DAILY 05/27/17 Review of Systems - Neurological Neurological: Tremor - Psychiatric Psychiatric: Abnormal Sleep Pattern, Anxiety, Depression. absent: Hallucinations, Homicidal Ideation, Paranoia, Suicidal Ideation Mental Status Examination - Personal Presentation Personal Presentation: Looks older than stated age - Affect Affect: Constricted - Motor Activity Motor Activity: Calm - Reliability in Providing Information Reliability in Providing Information: Good - Speech Speech: Organized - Mood Mood: Depressed, Anxious - Formal Thought Process Formal Thought Process: No Impairment - Cognitive Functions Orientation: Person, Place, Situation, Time Sensorium: Alert Attention/Concentration: Attentive Estimate of Intelligence: Average Judgement: Intact, as evidence by: Insight regarding need for hospitalization Memory: Recent intact, as evidence by: Ability to recall events of the day, Remote intact, as evidenced by: Abilit to recall sig. life events - Risk Risk: Withdrawal, Diminished functioning - Strength & Assets Inventory Strength & Assets Inventory: Employment history, Cooperative - Limitations Limitations: Other DSM 5 DX - DSM 5 DSM 5 Diagnosis: Alcohol withdrawal Alcohol use d/o - severe Depressive d/o - unspecified - Recommended/Plan of Treatment Treatment Recommendations and Plan of Treatment: Librium detox As needed medications Gabapentin for augmentation Supportive therapy and psychoeducation [place] for abstinence CBT for relapse prevention Encourage MAT Refer to rehab or IOP Attend self-help groups as well Support and CBT for depression Consider meds if needed (not interested now) 34 min
[2017-05-28 13:06] LABS: EOSINOPHIL 8 % (0-4); NEUTROPHIL 68 % (50-75); REACTIVE LYMPHOCYTES 1 % (0-0); TOTAL CELLS COUNTED 100
--- NOTE | 2017-05-28 22:29 | US ---
EXAM: US Abdomen Complete CLINICAL HISTORY: 31 years old, male; Abnormal findings; Abnormal lab test; Abnormal function test of other organs/systems; Additional info: Elevated lfts, elevated bilirubin TECHNIQUE: Real-time ultrasound of the abdomen (complete) with image documentation. COMPARISON: No relevant prior studies available. FINDINGS: Liver: Enlarged, 22.3 cm. Fatty infiltration. No mass. No intrahepatic ductal dilatation. Gallbladder: No gallstones. No wall thickening. No pericholecystic fluid. No sonographic Mitchell's sign. Common bile duct: No dilatation. No stones. Pancreas: Unremarkable as visualized. Kidneys: Normal echogenicity. No hydronephrosis. Spleen: No splenomegaly. Aorta: Unremarkable. No aneurysm. Inferior vena cava: Unremarkable. Free fluid: No significant free fluid. IMPRESSION: 1. Hepatic steatosis.
[2017-05-29] MEDS: Sodium Chloride 0.9% 1,000 ML IV SCH ×3 (06:16→21:57)
--- NOTE | 2017-05-29 06:51 | CP.PCM.PN ---
<RosalesSarah - Last Filed: 05/29/17 13:03> Subjective - Date & Time of Evaluation Date of Evaluation: 05/29/17 Time of Evaluation: 06:49 - Subjective Subjective: Internal Medicine Progress note for Dr. Anderson Patient states he met with Psychiatrist and it was a little helpful. Patient's tremors are not as noticeable today per patient. Patient denies Nausea, fever, vomiting, abdominal pain. Patient was curious about EKG. Patient was explained that his heart enzymes were negative for a hear attack so far. will follow up with patient with further results. Patient was explained the benefits of decreasing and ceasing alcohol based on ultrasound findings of fatty liver. Encouraged to talk to therapy to deal with stress and depression from new changes in life. Objective - Vital Signs/Intake and Output Vital Signs (last 24 hours): Temp Pulse Resp BP Pulse Ox 98.8 F 79 20 131/80 95 05/28/17 23:45 05/29/17 01:52 05/28/17 23:45 05/28/17 23:45 05/28/17 23:45 Intake and Output: 05/28/17 05/29/17 18:59 06:59 Intake Total 3080 Balance 3080 - Medications Medications: Current Medications Chlordiazepoxide (Librium) 25 mg PO Q8H [facility] PRN Reason: Taper Stop: 05/31/17 17:59 Last Admin: 05/29/17 02:00 Dose: 25 mg Enoxaparin Sodium (Lovenox) 40 mg SC DAILY [facility] Last Admin: 05/28/17 10:49 Dose: 40 mg Folic Acid (Folic Acid) 1 mg PO DAILY [facility] Last Admin: 05/28/17 10:49 Dose: 1 mg Gabapentin (Neurontin) 300 mg PO TID [facility] Last Admin: 05/28/17 17:23 Dose: 300 mg Sodium Chloride (Sodium Chloride 0.9%) 1,000 mls @ 100 mls/hr IV .Q10H [facility] Last Admin: 05/29/17 06:16 Dose: 100 mls/hr Influenza Virus Vaccine (Afluria) 45 mcg IM .ONCE ONE Stop: 05/30/17 10:01 Lorazepam (Ativan) 1 mg IVP Q6H PRN PRN Reason: Breakthru objective ETOH wdw Ondansetron HCl (Zofran Inj) 4 mg IVP Q6 PRN PRN Reason: Nausea/Vomiting Pneumococcal Polyvalent Vaccine (Pneumovax 23 Vaccine) 0.5 ml IM .ONCE ONE Stop: 05/30/17 10:01 Thiamine HCl (Vitamin B1 Tab) 100 mg PO DAILY [facility] Last Admin: 05/28/17 10:49 Dose: 100 mg Trazodone HCl (Desyrel) 100 mg PO HS PRN PRN Reason: Insomnia - Labs Labs: 05/28/17 12:01 05/28/17 12:01 - Constitutional Appears: Non-toxic - Head Exam Head Exam: NORMAL INSPECTION - Eye Exam Eye Exam: EOMI, Normal appearance - ENT Exam ENT Exam: Mucous Membranes Moist - Neck Exam Neck Exam: Full ROM - Respiratory Exam Respiratory Exam: NORMAL BREATHING PATTERN. absent: Accessory Muscle Use, Respiratory Distress - Cardiovascular Exam Cardiovascular Exam: REGULAR RHYTHM. absent: Bradycardia, Tachycardia - GI/Abdominal Exam GI & Abdominal Exam: Soft, Normal Bowel Sounds. absent: Distended, Rigid - Extremities Exam Extremities Exam: Full ROM, Normal Inspection. absent: Pedal Edema - Neurological Exam Neurological Exam: Alert, Awake, Oriented x3 Additional comments: decreased tremors, patient did not take ativan this morning. increased coordination compared to yesterday's physical exam - Psychiatric Exam Psychiatric exam: Normal Affect, Normal Mood Assessment and Plan - Assessment and Plan (Free Text) Assessment: 31 M ETOH abuse admitted for alcohol detoxification Alcohol Withdrawal * Librium taper * Ativan 1 mg Q2 PRN, for tremors and signs of Delirium tremens * Folic acid 1 mg PO QD * Thiamine 100 mg PO QD * NS @100/h * Vitals Q6 * f/u morning labs Elevated LFTs 05/28 Abdominal US: hepatic steatosis, fatty infiltrates without ductal dilitation. no cholelithiasis, no pericholecystic fluid or wall thickening Depression Psychiatry consult: Dr. Lainez: supportive therapy and psychoeducation, refer to Rehab or IOP, attend self-help groups, [place] for abstinence, CBT for relapse prevention, encourage MAT, continue with current ETOH detox. Chest Pain * SHIMON Panel * 05/[address] elevation PPX * Seizure precautions, CIWA protocol assessment per nursing * Lovenox 40 mg SC QD * Zofran 4mg IV <Clari Anderson V - Last Filed: 05/30/17 21:40> Objective - Vital Signs/Intake and Output Vital Signs (last 24 hours): Temp Pulse Resp BP Pulse Ox 98.0 F 66 20 134/88 95 05/30/17 07:00 05/30/17 07:30 05/30/17 07:00 05/30/17 07:00 05/30/17 07:00 Intake and Output: 05/30/17 05/31/17 18:59 06:59 Intake Total 1780 Balance 1780 - Labs Labs: 05/29/17 07:09 05/29/17 07:09 Attending/Attestation - Attestation I have personally seen and examined this patient.: Yes I have fully participated in the care of the patient.: Yes I have reviewed all pertinent clinical information, including history, physical exam and plan: Yes Notes (Text): This is late computer entry for 05/29/17. Patient seen, examined and case discussed with day-time resident. Patient is currently on Librium taper; Day 3. During interview, patent is less tremulous over the upper extremities and has improved coordination in finger to nose on examination. Psychiatry input appreciated Liver enzymes improved; likely secondary to alcohol Assessment/Plan 1) Alcohol Withdrawal * Monitor on telemetry * Librium taper (started on 05/27/17) * will monitor LFTs * Ativan 1 mg IVP Q2 PRN, for tremors and signs of Delirium tremens * Folic acid 1 mg PO QDaily * Thiamine 100 mg PO Qdaily * NS @100/hours 2) Chest Pain * likely secondary to withdrawal * Denies pain today * SHIMON X2: negative * EKG: NSR 3) Elevated Transaminitis * Likely secondary to alcohol use * 05/28 Abdominal US: hepatic steatosis, fatty infiltrates without ductal dilatation. no cholelithiasis, no pericholecystic fluid or wall thickening 4) Depressive symptoms with alcohol use * Psychiatry: Dr Lainez on board-->help appreciated * Librium detox * As needed medications * Gabapentin for augmentation * Supportive therapy and psychoeducation * GA for abstinence * CBT for relapse prevention * Encourage MAT * Refer to rehab or IOP * Attend self-help groups as well * Support and CBT for depression * Consider meds if needed (not interested now) * Pastoral care 5) PPX * * Monitor on telemetry * Seizure precautions * Lovenox 40 mg SC QDaily * Zofran 4mg IV Q 6HR PRN nausea
[2017-05-29 07:34] LABS: BASO % 0.5 % (0.0-2.0); EOS # 0.6 K/uL (0.0-0.7); LYMPH % 28.5 % (20.0-40.0); MEAN CELL VOLUME 95.1 fL (80.0-94.0); MEAN CORPUSCULAR HEMOGLOBIN 33.3 pg (27.0-31.0); MEAN PLATELET VOLUME 8.5 fL (7.2-11.7)
[2017-05-29 07:42] LABS: ALB/GLOB RATIO 1.4 (1.0-2.1); ALKALINE PHOSPHATASE 67 U/L (38-126); ALT/SGPT 170 U/L (21-72); AST/SGOT 134 U/L (17-59); BILIRUBIN,TOTAL 1.2 mg/dL (0.2-1.3); BLOOD UREA NITROGEN 9 mg/dL (9-20); CALCIUM 9.3 mg/dl (8.6-10.4); CARBON DIOXIDE 24 mmol/L (22-30); CHLORIDE 102 mmol/L (98-107); GFR AFRICAN-AMERICAN > 60; GLUCOSE,RANDOM 95 mg/dL (75-110); MAGNESIUM 1.9 mg/dL (1.6-2.3); SODIUM 137 mmol/L (132-148); TOTAL PROTEIN 6.9 g/dL (6.3-8.3)
[2017-05-29 07:51] LABS: EOS % 9.9 % (0.0-4.0); HEMATOCRIT 45.6 % (35.0-51.0); LYMPH # 1.9 K/uL (1.0-4.3); MONO # 0.6 K/uL (0.0-0.8); MONO % 9.1 % (0.0-10.0); NRBC % 0.2 % (0.0-2.0); RED CELL DISTRIBUTION WIDTH 13.8 % (11.5-14.5); WHITE BLOOD COUNT 6.5 K/uL (4.8-10.8)
[2017-05-30] MEDS: Sodium Chloride 0.9% 1,000 ML IV SCH (06:15)
[2017-05-30 07:48] VITALS: BP 134/88; RESP 20; TEMP 98; O2SAT 95
[2017-05-30] MEDS ORDERED: Pneumococcal 23-Valent Vaccine IM ONE (10:00)
[2017-05-30] MEDS ORDERED: Influenza Virus Vaccine 45 mcg/0.5 ml Syr IM ONE (10:00)
--- NOTE | 2017-05-30 10:31 | CP.PCM.PN ---
<RosalesSarah - Last Filed: 05/30/17 14:06> Subjective - Date & Time of Evaluation Date of Evaluation: 05/30/17 Time of Evaluation: 10:28 - Subjective Subjective: Internal Medicine Progress note for Dr. Anderson Patient seen an examined at bedside. Patient states he's feeling much better. Patient states the tremors are not as noticeable. Patient denies Nausea, fever, vomiting, abdominal pain. Patient states they just took him for an XRay of his shoulder. results were not read yet. Objective - Vital Signs/Intake and Output Vital Signs (last 24 hours): Temp Pulse Resp BP Pulse Ox 98.0 F 75 20 134/88 95 05/30/17 07:00 05/30/17 07:00 05/30/17 07:00 05/30/17 07:00 05/30/17 07:00 - Medications Medications: Current Medications Chlordiazepoxide (Librium) 25 mg PO Q12H [facility] PRN Reason: Taper Stop: 05/31/17 17:59 Last Admin: 05/30/17 06:15 Dose: 25 mg Folic Acid (Folic Acid) 1 mg PO DAILY [facility] Last Admin: 05/30/17 09:58 Dose: 1 mg Gabapentin (Neurontin) 300 mg PO TID [facility] Last Admin: 05/30/17 09:57 Dose: 300 mg Sodium Chloride (Sodium Chloride 0.9%) 1,000 mls @ 100 mls/hr IV .Q10H [facility] Last Admin: 05/30/17 06:15 Dose: 100 mls/hr Lorazepam (Ativan) 1 mg IVP Q6H PRN PRN Reason: Breakthru objective ETOH wdw Ondansetron HCl (Zofran Inj) 4 mg IVP Q6 PRN PRN Reason: Nausea/Vomiting Thiamine HCl (Vitamin B1 Tab) 100 mg PO DAILY [facility] Last Admin: 05/30/17 09:57 Dose: 100 mg Trazodone HCl (Desyrel) 100 mg PO HS PRN PRN Reason: Insomnia - Labs Labs: 05/29/17 07:09 05/29/17 07:09 - Constitutional Appears: Non-toxic - Head Exam Head Exam: NORMAL INSPECTION - Eye Exam Eye Exam: EOMI, Normal appearance - ENT Exam ENT Exam: Mucous Membranes Moist - Respiratory Exam Respiratory Exam: NORMAL BREATHING PATTERN. absent: Accessory Muscle Use, Respiratory Distress - Cardiovascular Exam Cardiovascular Exam: REGULAR RHYTHM. absent: Bradycardia, Tachycardia - GI/Abdominal Exam GI & Abdominal Exam: Soft. absent: Guarding, Rigid, Tenderness - Extremities Exam Extremities Exam: Full ROM, Normal Inspection. absent: Pedal Edema - Neurological Exam Neurological Exam: Alert, Awake Additional comments: coordination is better today than yesterday tremors of hands are minimal on the right hand. tremors more apparent on the left hand, but less than yesterday - Psychiatric Exam Psychiatric exam: Flat Affect, Normal Mood - Skin Skin Exam: Dry, Intact, Normal Color, Warm Assessment and Plan - Assessment and Plan (Free Text) Assessment: 31 M ETOH abuse admitted for alcohol detoxification Alcohol Withdrawal * Librium taper * Ativan 1 mg Q2 PRN, for tremors and signs of Delirium tremens * Folic acid 1 mg PO QD * Thiamine 100 mg PO QD * NS @100/h * Vitals Q6 * f/u morning labs Elevated LFTs 05/28 Abdominal US: hepatic steatosis, fatty infiltrates without ductal dilitation. no cholelithiasis, no pericholecystic fluid or wall thickening f/u outpatient in clinic ETOH abuse counseling for alcohol abuse Depression Psychiatry consult: Dr. Lainez: supportive therapy and psychoeducation, refer to Rehab or IOP, attend self-help groups, [place] for abstinence, CBT for relapse prevention, encourage MAT, continue with current ETOH detox. discharge with AA referral, therapy suggestions Chest Pain * SHIMON Panel * 05/[address] elevation PPX * Seizure precautions, CIWA protocol assessment per nursing * Lovenox 40 mg SC QD * Zofran 4mg IV <Clari Anderson V - Last Filed: 05/30/17 22:08> Objective - Vital Signs/Intake and Output Vital Signs (last 24 hours): Temp Pulse Resp BP Pulse Ox 98.0 F 66 20 134/88 95 05/30/17 07:00 05/30/17 07:30 05/30/17 07:00 05/30/17 07:00 05/30/17 07:00 Intake and Output: 05/30/17 05/31/17 18:59 06:59 Intake Total 1780 Balance 1780 - Labs Labs: 05/29/17 07:09 05/29/17 07:09 Attending/Attestation - Attestation I have personally seen and examined this patient.: Yes I have fully participated in the care of the patient.: Yes I have reviewed all pertinent clinical information, including history, physical exam and plan: Yes Notes (Text): Patient seen, examined, and case discussed with day-time resident. Patient seen during morning rounds this morning. Patient reports he is feeling much better. Tremors have subsided and coordination has improved. Per psychiatry, patient is stable for discharge. Discussed with social work to provide AA and alcohol cessation resources to the patient prior to discharge. Patient may resume home medication: Gabapentin to assist in reducing alcohol cravings. No new prescriptions provided. Discussed discharge order and discharge instructions with resident and patient at bedside. Patient understands to stop alcohol cessation. Recommended to repeat liver function tests when he follows-up in the [facility] ([phone]) to make an appointment following discharge. Patient was offered flu vaccine and pneumonia vaccine but patient refused. This is a summary of patient's hospitalization. Please review record of EMR for further details. Discharge diagnoses: 1) Alcohol Withdrawal-->stabilized * Monitor on telemetry * Librium taper (started on 05/27/17-05/30/17)->completed during hospitalization * Folic acid 1 mg PO QDaily * Thiamine 100 mg PO Qdaily 2) Chest Pain-->resolved * likely secondary to withdrawal * Denies pain today * SHIMON X2: negative * EKG: NSR 3) Elevated Transaminitis * Likely secondary to alcohol use * 05/28 Abdominal US: hepatic steatosis, fatty infiltrates without ductal dilatation. no cholelithiasis, no pericholecystic fluid or wall thickening * Recommended to repeat Liver function tests within one week of discharge 4) Depressive symptoms with alcohol use-->stable * Psychiatry: Dr Lainez on board-->help appreciated; psych signed off 05/30 * Librium detox * As needed medications * Gabapentin for augmentation * Supportive therapy and psychoeducation * [place] for abstinence * CBT for relapse prevention * Encourage MAT * Refer to rehab or IOP * Attend self-help groups as well * Support and CBT for depression * Consider meds if needed (not interested now) * Pastoral care 5) PPX * Monitor on telemetry * Seizure precautions * Lovenox 40 mg SC QDaily * Zofran 4mg IV Q 6HR PRN nausea
--- NOTE | 2017-05-30 16:16 | PCM.PYCHPN ---
Psychiatric Progress Note - Psychiatric Progress Note Patient seen today, length of contact: 16 minutes Patient Chief Complaint: "I feel better" Problems Identified/Issues Discussed: The pt is seen at bedside and chart reviewed. The pt is compliant with medications and reports no side-effects, and states that the medications made him feel much better. No other complaints at this time. Support and pyschoeducation given, CBT and NC used briefly. Psych signs off. Medication Change: Yes (Detox meds changes daily) Medical Record Reviewed: Yes Mental Status Examination - Cognitive Function Orientation: Person, Place, Situation, Time Memory: Intact Attention: WNL Concentration: WNL Association: WNL Fund of Knowledge: WNL - Mood Mood: Neutral - Affect Affect: Constricted - Speech Speech: Appropriate - Formal Thought Process Formal Thought Process: No Impairment - Suicidal Ideation Suicidal Ideation: No - Homicidal Ideation Homicidal Ideation: No Goal/Treatment Plan - Goal/Treatment Plan Progress Toward Problem(s) and Goals/Treatment Plan: Librium detox As needed medications Gabapentin for augmentation Supportive therapy and psychoeducation NC for abstinence CBT for relapse prevention Encourage MAT Refer to rehab or IOP Attend self-help groups as well Support and CBT for depression 16 min
--- NOTE | 2017-05-30 16:34 | CP.PCM.DIS ---
<Sarah Caba - Last Filed: 05/30/17 17:43> Provider - Provider Date of Admission: 05/27/17 17:42 Attending physician: Diaz Sarabia DO Hospital Course - Lab Results Lab Results: Most Recent Lab Values WBC 6.5 K/uL (4.8-10.8) 05/29/17 07:09 RBC 4.80 Mil/uL (4.40-5.90) 05/29/17 07:09 Hgb 16.0 g/dL (12.0-18.0) 05/29/17 07:09 Hct 45.6 % (35.0-51.0) 05/29/17 07:09 MCV 95.1 fL (80.0-94.0) H 05/29/17 07:09 MCH 33.3 pg (27.0-31.0) H 05/29/17 07:09 MCHC 35.0 g/dL (33.0-37.0) 05/29/17 07:09 RDW 13.8 % (11.5-14.5) 05/29/17 07:09 Plt Count 127 K/uL (130-400) L 05/29/17 07:09 MPV 8.5 fL (7.2-11.7) 05/29/17 07:09 Neut % (Auto) 52.0 % (50.0-75.0) 05/29/17 07:09 Lymph % (Auto) 28.5 % (20.0-40.0) 05/29/17 07:09 Daggett % (Auto) 9.1 % (0.0-10.0) 05/29/17 07:09 Eos % (Auto) 9.9 % (0.0-4.0) H 05/29/17 07:09 Baso % (Auto) 0.5 % (0.0-2.0) 05/29/17 07:09 Neut # 3.4 K/uL (1.8-7.0) 05/29/17 07:09 Lymph # 1.9 K/uL (1.0-4.3) 05/29/17 07:09 Daggett # 0.6 K/uL (0.0-0.8) 05/29/17 07:09 Eos # 0.6 K/uL (0.0-0.7) 05/29/17 07:09 Baso # 0.0 K/uL (0.0-0.2) 05/29/17 07:09 Neutrophils % (Manual) 68 % (50-75) 05/28/17 12:01 Band Neutrophils % 1 % (0-2) 05/28/17 12:01 Lymphocytes % (Manual) 13 % (20-40) L 05/28/17 12:01 Reactive Lymphs % 1 % (0-0) H 05/28/17 12:01 Monocytes % (Manual) 9 % (0-10) 05/28/17 12:01 Eosinophils % (Manual) 8 % (0-4) H 05/28/17 12:01 Differential Comment 05/29/17 07:09 Platelet Estimate Normal (NORMAL) 05/28/17 12:01 RBC Morphology Normal 05/28/17 12:01 Sodium 137 mmol/L (132-148) 05/29/17 07:09 Potassium 4.0 mmol/L (3.6-5.2) 05/29/17 07:09 Chloride 102 mmol/L (98-107) 05/29/17 07:09 Carbon Dioxide 24 mmol/L (22-30) 05/29/17 07:09 Anion Gap 16 (10-20) 05/29/17 07:09 BUN 9 mg/dL (9-20) 05/29/17 07:09 Creatinine 0.7 MG/DL (0.8-1.5) L 05/29/17 07:09 Est GFR ( Amer) > 60 05/29/17 07:09 Est GFR (Non-Af Amer) > 60 05/29/17 07:09 Random Glucose 95 mg/dL (75-110) 05/29/17 07:09 Calcium 9.3 mg/dl (8.6-10.4) 05/29/17 07:09 Magnesium 1.9 mg/dL (1.6-2.3) 05/29/17 07:09 Total Bilirubin 1.2 mg/dL (0.2-1.3) 05/29/17 07:09 AST 134 U/L (17-59) H 05/29/17 07:09 ALT 170 U/L (21-72) H 05/29/17 07:09 Alkaline Phosphatase 67 U/L (38-126) 05/29/17 07:09 Total Creatine Kinase 28 U/L (55-170) L 05/30/17 11:09 CK-MB (Mass) < 0.22 ng/mL (0.0-3.38) 05/30/17 11:09 Troponin I, Quant < 0.0120 ng/mL (0.00-0.120) 05/30/17 11:09 Total Protein 6.9 g/dL (6.3-8.3) 05/29/17 07:09 Albumin 4.0 g/dL (3.5-5.0) 05/29/17 07:09 Globulin 2.9 gm/dL (2.2-3.9) 05/29/17 07:09 Albumin/Globulin Ratio 1.4 (1.0-2.1) 05/29/17 07:09 Urine Color Straw (YELLOW) 05/27/17 06:39 Urine Clarity Clear (Clear) 05/27/17 06:39 Urine pH 7.0 (5.0-8.0) 05/27/17 06:39 Ur Specific Grimes 1.005 (1.003-1.030) 05/27/17 06:39 Urine Protein 1+ mg/dL (NEGATIVE) H 05/27/17 06:39 Urine Glucose (UA) Normal mg/dL (Normal) 05/27/17 06:39 Urine Ketones Negative mg/dL (NEGATIVE) 05/27/17 06:39 Urine Blood Negative (NEGATIVE) 05/27/17 06:39 Urine Nitrate Negative (NEGATIVE) 05/27/17 06:39 Urine Bilirubin Negative (NEGATIVE) 05/27/17 06:39 Urine Urobilinogen Normal mg/dL (0.2-1.0) 05/27/17 06:39 Ur Leukocyte Esterase Neg Roselia/uL (Negative) 05/27/17 06:39 Urine WBC (Auto) < 1 /hpf (0-5) 05/27/17 06:39 Urine RBC (Auto) < 1 /hpf (0-3) 05/27/17 06:39 Salicylates < 1.0 mg/dL 1 05/27/17 06:39 Urine Opiates Screen Negative (NEGATIVE) 05/27/17 06:39 Urine Methadone Screen Negative (NEGATIVE) 05/27/17 06:39 Acetaminophen < 10.0 ug/mL (10.0-30.0) L 05/27/17 06:39 Ur Barbiturates Screen Negative (NEGATIVE) 05/27/17 06:39 Ur Phencyclidine Scrn Negative (NEGATIVE) 05/27/17 06:39 Ur Amphetamines Screen Negative (NEGATIVE) 05/27/17 06:39 U Benzodiazepines Scrn Negative (NEGATIVE) 05/27/17 06:39 U Oth Cocaine Metabols Negative (NEGATIVE) 05/27/17 06:39 U Cannabinoids Screen Negative (NEGATIVE) 05/27/17 06:39 Alcohol, Quantitative 411 mg/dl (0-10) H 05/27/17 06:39 - Hospital Course Hospital Course: Patient is a 31 y/o male with a history of alcoholism who presents to the ED for detox. Patient says he came yesterday early in the morning but was told there were no beds for detox so he has been in the ED since then. Patient is complaining of nausea, vomiting x1, and tremor that started yesterday and have progressively become worse. Patient says he is a heavy drinker and for the past week he has been drinking 10-20 shots of vodka per day with an occasional beer. Patient says his last drink was yesterday about half an hour before he arrived around 3:00 AM. Patient says he has episodes of binge drinking with breaks in between. Patient admits to "cold sweats", weakness, SOB, loss of appetite, numbness and tingling in hands/feet, and change in vision saying it looks like "things are wiggling". Patient says he feels depressed and is stressed because he recently lost his job, which is why he was drinking so much. Patient denies fever, headache, chest pain, abdominal pain, diarrhea, constipation, dysuria, frequency, LE pain/swelling, rashes, recent illness, and change in weight. 05/26 was patient's last drink. Patient continues to have tremors during hospital stay. Ativan 1mg IVP Q2H PRN ordered. Patient states on his good days, he drinks 5 shots of vodka and on his bad days he drinks 10-20 shots of vodka. Patient also stated he felt depressed with social stressors in his life (ie: kids are leaving with his ex to [place]) . Patient was also admitting to shoulder pain that was located at clavicle area and radiated to mid upper arm on the left side. 05/28 New EKG was ordered, SHIMON panel ordered. All negative for ST-elevations. Patient had Xray of shoulder ordered. No signs of fractures. 05/30 Patient stated he felt much better, Tremors are minimal. Patient continues to be tapered off Librium. Patient was cleared for discharge and sent home on no new medications. Patient was told to continue home medications of Neurontin 300mg PO TID and his multivitamins. Patient an appointment was created at the clinic for the patient to follow up at [facility] [phone], follow up liver enzymes, which were elevated during admission. Recommended to follow up with AA and therapy. Patient was advised to modify diet for fatty liver and cease alcohol intake. Please see EMR for further information about patient's stay at the hospital Please See MAR for medications delivered during hospital stay Discharge Exam - Head Exam Head Exam: NORMAL INSPECTION Discharge Plan - Follow Up Plan Condition: STABLE Disposition: HOME/ ROUTINE Instructions: Hib Vaccine (DC), Pneumococcal Vaccine for Adults (DC), Depression (DC), Alcohol Intoxication (DC), Alcohol Withdrawal (DC), Anxiety (DC ) Additional Instructions: Patient advised to go to clinic in one week, [facility] [phone] follow up liver enzymes, which were elevated Recommended to follow up with AA and therapy Referrals: [facility] [Outside] <Clari Anderson V - Last Filed: 05/30/17 22:09> Provider - Provider Date of Admission: 05/27/17 17:42 Attending physician: Diaz Sarabia DO Time Spent in preparation of Discharge (in minutes): 31 Hospital Course - Lab Results Lab Results: Most Recent Lab Values WBC 6.5 K/uL (4.8-10.8) 05/29/17 07:09 RBC 4.80 Mil/uL (4.40-5.90) 05/29/17 07:09 Hgb 16.0 g/dL (12.0-18.0) 05/29/17 07:09 Hct 45.6 % (35.0-51.0) 05/29/17 07:09 MCV 95.1 fL (80.0-94.0) H 05/29/17 07:09 MCH 33.3 pg (27.0-31.0) H 05/29/17 07:09 MCHC 35.0 g/dL (33.0-37.0) 05/29/17 07:09 RDW 13.8 % (11.5-14.5) 05/29/17 07:09 Plt Count 127 K/uL (130-400) L 05/29/17 07:09 MPV 8.5 fL (7.2-11.7) 05/29/17 07:09 Neut % (Auto) 52.0 % (50.0-75.0) 05/29/17 07:09 Lymph % (Auto) 28.5 % (20.0-40.0) 05/29/17 07:09 Daggett % (Auto) 9.1 % (0.0-10.0) 05/29/17 07:09 Eos % (Auto) 9.9 % (0.0-4.0) H 05/29/17 07:09 Baso % (Auto) 0.5 % (0.0-2.0) 05/29/17 07:09 Neut # 3.4 K/uL (1.8-7.0) 05/29/17 07:09 Lymph # 1.9 K/uL (1.0-4.3) 05/29/17 07:09 Daggett # 0.6 K/uL (0.0-0.8) 05/29/17 07:09 Eos # 0.6 K/uL (0.0-0.7) 05/29/17 07:09 Baso # 0.0 K/uL (0.0-0.2) 05/29/17 07:09 Neutrophils % (Manual) 68 % (50-75) 05/28/17 12:01 Band Neutrophils % 1 % (0-2) 05/28/17 12:01 Lymphocytes % (Manual) 13 % (20-40) L 05/28/17 12:01 Reactive Lymphs % 1 % (0-0) H 05/28/17 12:01 Monocytes % (Manual) 9 % (0-10) 05/28/17 12:01 Eosinophils % (Manual) 8 % (0-4) H 05/28/17 12:01 Differential Comment 05/29/17 07:09 Platelet Estimate Normal (NORMAL) 05/28/17 12:01 RBC Morphology Normal 05/28/17 12:01 Sodium 137 mmol/L (132-148) 05/29/17 07:09 Potassium 4.0 mmol/L (3.6-5.2) 05/29/17 07:09 Chloride 102 mmol/L (98-107) 05/29/17 07:09 Carbon Dioxide 24 mmol/L (22-30) 05/29/17 07:09 Anion Gap 16 (10-20) 05/29/17 07:09 BUN 9 mg/dL (9-20) 05/29/17 07:09 Creatinine 0.7 MG/DL (0.8-1.5) L 05/29/17 07:09 Est GFR ( Amer) > 60 05/29/17 07:09 Est GFR (Non-Af Amer) > 60 05/29/17 07:09 Random Glucose 95 mg/dL (75-110) 05/29/17 07:09 Calcium 9.3 mg/dl (8.6-10.4) 05/29/17 07:09 Magnesium 1.9 mg/dL (1.6-2.3) 05/29/17 07:09 Total Bilirubin 1.2 mg/dL (0.2-1.3) 05/29/17 07:09 AST 134 U/L (17-59) H 05/29/17 07:09 ALT 170 U/L (21-72) H 05/29/17 07:09 Alkaline Phosphatase 67 U/L (38-126) 05/29/17 07:09 Total Creatine Kinase 28 U/L (55-170) L 05/30/17 11:09 CK-MB (Mass) < 0.22 ng/mL (0.0-3.38) 05/30/17 11:09 Troponin I, Quant < 0.0120 ng/mL (0.00-0.120) 05/30/17 11:09 Total Protein 6.9 g/dL (6.3-8.3) 05/29/17 07:09 Albumin 4.0 g/dL (3.5-5.0) 05/29/17 07:09 Globulin 2.9 gm/dL (2.2-3.9) 05/29/17 07:09 Albumin/Globulin Ratio 1.4 (1.0-2.1) 05/29/17 07:09 Urine Color Straw (YELLOW) 05/27/17 06:39 Urine Clarity Clear (Clear) 05/27/17 06:39 Urine pH 7.0 (5.0-8.0) 05/27/17 06:39 Ur Specific Grimes 1.005 (1.003-1.030) 05/27/17 06:39 Urine Protein 1+ mg/dL (NEGATIVE) H 05/27/17 06:39 Urine Glucose (UA) Normal mg/dL (Normal) 05/27/17 06:39 Urine Ketones Negative mg/dL (NEGATIVE) 05/27/17 06:39 Urine Blood Negative (NEGATIVE) 05/27/17 06:39 Urine Nitrate Negative (NEGATIVE) 05/27/17 06:39 Urine Bilirubin Negative (NEGATIVE) 05/27/17 06:39 Urine Urobilinogen Normal mg/dL (0.2-1.0) 05/27/17 06:39 Ur Leukocyte Esterase Neg Roselia/uL (Negative) 05/27/17 06:39 Urine WBC (Auto) < 1 /hpf (0-5) 05/27/17 06:39 Urine RBC (Auto) < 1 /hpf (0-3) 05/27/17 06:39 Salicylates < 1.0 mg/dL 1 05/27/17 06:39 Urine Opiates Screen Negative (NEGATIVE) 05/27/17 06:39 Urine Methadone Screen Negative (NEGATIVE) 05/27/17 06:39 Acetaminophen < 10.0 ug/mL (10.0-30.0) L 05/27/17 06:39 Ur Barbiturates Screen Negative (NEGATIVE) 05/27/17 06:39 Ur Phencyclidine Scrn Negative (NEGATIVE) 05/27/17 06:39 Ur Amphetamines Screen Negative (NEGATIVE) 05/27/17 06:39 U Benzodiazepines Scrn Negative (NEGATIVE) 05/27/17 06:39 U Oth Cocaine Metabols Negative (NEGATIVE) 05/27/17 06:39 U Cannabinoids Screen Negative (NEGATIVE) 05/27/17 06:39 Alcohol, Quantitative 411 mg/dl (0-10) H 05/27/17 06:39 Attending/Attestation - Attestation I have personally seen and examined this patient.: Yes I have fully participated in the care of the patient.: Yes I have reviewed all pertinent clinical information, including history, physical exam and plan: Yes Notes (Text): Patient seen, examined, and case discussed with day-time resident. Patient seen during morning rounds this morning. Patient reports he is feeling much better. Tremors have subsided and coordination has improved. Per psychiatry, patient is stable for discharge. Discussed with social work to provide AA and alcohol cessation resources to the patient prior to discharge. Patient may resume home medication: Gabapentin to assist in reducing alcohol cravings. No new prescriptions provided. Discussed discharge order and discharge instructions with resident and patient at bedside. Patient understands to stop alcohol cessation. Recommended to repeat liver function tests when he follows-up in the [facility] ([phone]) to make an appointment following discharge. Patient was offered flu vaccine and pneumonia vaccine but patient refused. This is a summary of patient's hospitalization. Please review record of EMR for further details. Discharge diagnoses: 1) Alcohol Withdrawal-->stabilized * Monitor on telemetry * Librium taper (started on 05/27/17-05/30/17)->completed during hospitalization * Folic acid 1 mg PO QDaily * Thiamine 100 mg PO Qdaily 2) Chest Pain-->resolved * likely secondary to withdrawal * Denies pain today * SHIMON X2: negative * EKG: NSR 3) Elevated Transaminitis * Likely secondary to alcohol use * 05/28 Abdominal US: hepatic steatosis, fatty infiltrates without ductal dilatation. no cholelithiasis, no pericholecystic fluid or wall thickening * Recommended to repeat Liver function tests within one week of discharge 4) Depressive symptoms with alcohol use-->stable * Psychiatry: Dr Lainez on board-->help appreciated; psych signed off 05/30 * Librium detox * As needed medications * Gabapentin for augmentation * Supportive therapy and psychoeducation * [place] for abstinence * CBT for relapse prevention * Encourage MAT * Refer to rehab or IOP * Attend self-help groups as well * Support and CBT for depression * Consider meds if needed (not interested now) * Pastoral care 5) PPX * Monitor on telemetry * Seizure precautions * Lovenox 40 mg SC QDaily * Zofran 4mg IV Q 6HR PRN nausea
[2017-05-30 17:20] VITALS: PULSE 66
--- NOTE | 2017-05-30 18:21 | RAD ---
PROCEDURE: Radiographs of both shoulders HISTORY: left shoulder Pain. No history of recent/ related trauma provided COMPARISON: No prior. FINDINGS: BONES: Right shoulder: Normal. No fracture. Left shoulder: Normal. No fracture. JOINTS: Right shoulder: Normal. No significant osteoarthritic changes. Left shoulder: Normal. No significant osteoarthritic changes. SOFT TISSUES: Right shoulder: Grossly unremarkable. Right shoulder: Grossly unremarkable. OTHER FINDINGS: None. IMPRESSION: Normal radiographs of the shoulders.
== END 2017-05-30 14:15 | disposition home or self-care (01) | DRG 897 ==
LOC: C.ER 05:32 → C.9OBSV 09:31 → OBSVTOIN 17:42 → C.9E 17:58 → C.5S 18:30
PROVIDERS: ADMIT Hospitalist; ATTEND Hospitalist
PROC: HZ2ZZZZ Detoxification Services for Substance Abuse Treatment (ICD-10-PCS; principal; 2017-05-27)
DX: F10.230 Alcohol dependence with withdrawal, uncomplicated (principal); K76.0 Fatty (change of) liver, not elsewhere classified; F10.239 Alcohol dependence with withdrawal, unspecified; F32.9 Major depressive disorder, single episode, unspecified; F17.210 Nicotine dependence, cigarettes, uncomplicated; R74.0 Nonspecific elevation of levels of transaminase and lactic acid dehydrogenase [LDH]; M25.512 Pain in left shoulder

== ENCOUNTER → 2017-06-07 14:21 | Emergency (ER) | payer MEDICAID, OTHER | END | disposition left against medical advice (07) | LOC: C.ER 14:21 | DX: Z02.89 Encounter for other administrative examinations (principal); Z00.00 Encounter for general adult medical examination without abnormal findings ==

== ENCOUNTER 2017-06-12 15:39 | Inpatient (IN) | payer OTHER ==
--- NOTE | 2017-06-12 16:07 | C.PDOC ---
History Of Present Illness <RonaldolouErickMarissa - Last Filed: 06/12/17 18:12> <Nkechi Velazquez - Last Filed: 06/12/17 18:36> 31 year old male presents to the ED requesting alcohol detox. Patient reports his last use was last night. Has been drinking for 10 years- 20 shots a day. H/ o detox 2 months ago. Patient reports nausea, but denies vomiting. Patient denies suicidal/homicidal ideation or history of withdrawal seizures. ( Marissa Antoine) History Per: Patient History/Exam Limitations: no limitations Onset/Duration Of Symptoms: Hrs Current Symptoms Are (Timing): Still Present Suicide/Self Injury Attempted (Context): None Modifying Factor(s): Alcohol Associated Symptoms: denies: Suicidal Thoughts, Suicidal Plan Involuntary Hold By: None Recent travel outside of the [place]: No Additional History Per: Patient <Marissa Antoine - Last Filed: 06/12/17 18:12> <Nkechi Velazquez - Last Filed: 06/12/17 18:36> Time Seen by Provider: 06/12/17 16:05 Chief Complaint (Nursing): Substance Abuse Past Medical History Reviewed: Historical Data, Nursing Documentation, Vital Signs - Medical History PMH: Anxiety, Depression Denies: Diabetes, Hepatitis, HIV, HTN, Chronic Kidney Disease, Seizures, Sexually Transmitted Disease Surgical History: No Surg Hx Family History: States: Unknown Family Hx - Social History Hx Alcohol Use: Yes Hx Substance Use: No - Immunization History Hx Tetanus Toxoid Vaccination: No Hx Influenza Vaccination: No Hx Pneumococcal Vaccination: No <Marissa Antoine - Last Filed: 06/12/17 18:12> Vital Signs: Last Vital Signs Temp 98.2 F 06/12/17 15:50 Pulse 92 H 06/12/17 15:50 Resp 20 06/12/17 15:50 BP 158/93 H 06/12/17 15:50 Pulse Ox 97 06/12/17 18:15 - [facility] Procedures DETOXIFICATION SERVICES FOR SUBSTANCE ABUSE TREATMENT (05/27/17) GROUP WATER POLLUTION SPECIALIST FOR SUBSTANCE ABUSE TREATMENT, PSYCHOEDUCATION (04/13/17) INDIV PSYCHOTHERAPY FOR SUBSTANCE ABUSE TREATMENT, SUPPORT (04/13/17) Review Of Systems Psych: Positive for: Withdrawal (diaphoretic and tremulous ), Other (alcohol detox). Negative for: Suicidal ideation <Marissa Antoine - Last Filed: 06/12/17 18:12> Physical Exam - Physical Exam Appears: Non-toxic, Other (tremulous , uncomfortable) Skin: Normal Color, Warm, Diaphoretic Head: Atraumatic, Normacephalic Eye(s): bilateral: Normal Inspection, EOMI Nose: Normal Oral Mucosa: Moist Neck: Normal ROM, Supple Chest: Symmetrical, No Deformity, No Tenderness Cardiovascular: Rhythm Regular, No Murmur Respiratory: Normal Breath Sounds, No Rales, No Rhonchi, No Wheezing Gastrointestinal/Abdominal: Normal Exam, Soft, No Tenderness Extremity: Normal ROM, Capillary Refill (less than 2 seconds ) Neurological/Psych: Oriented x3, Normal Speech, Normal Cognition Gait: Steady <Marissa Antoine - Last Filed: 06/12/17 18:12> ED Course And Treatment - Laboratory Results Result Diagrams: 06/12/17 16:34 06/12/17 16:34 O2 Sat by Pulse Oximetry: 97 (on RA ) Pulse Ox Interpretation: Normal Progress Note: bloodwork and urinalysis ordered and reviewed. Ativan IVP, Librium PO, Zofran PO, and IV Fluids administered. Patient was evaluated by dope worker. Patient will be admitted to detox. Case discussed and pt evaluated by Dr Velazquez, agreed upon plan and treatment. <Marissa Antoine - Last Filed: 06/12/17 18:12> - Laboratory Results Result Diagrams: 06/12/17 16:34 06/12/17 16:34 <Nkechi Velazquez - Last Filed: 06/12/17 18:36> Disposition - Disposition Disposition Time: 18:15 <Marissa Antoine - Last Filed: 06/12/17 18:12> <Nkechi Velazquez - Last Filed: 06/12/17 18:36> - Disposition Disposition: HOSPITALIZED Condition: STABLE - Clinical Impression Clinical Impression: Elevated LFTs, Alcohol withdrawal - PA / NEWSPAPER PRESS OPERATOR APPRENTICE / Resident Statement MD/DO has reviewed & agrees with the documentation as recorded. - Scribe Statement The provider has reviewed the documentation as recorded by the Scribe (Tonya Troncoso) <Marissa Antoine - Last Filed: 06/12/17 18:12> <Nkechi Velazquez - Last Filed: 06/12/17 18:36> - Scribe Statement All medical record entries made by the Scribe were at my direction and personally dictated by me. I have reviewed the chart and agree that the record accurately reflects my personal performance of the history, physical exam, medical decision making, and the department course for this patient. I have also personally directed, reviewed, and agree with the discharge instructions and disposition. (Marissa Antoine)
[2017-06-12] MEDS ORDERED: Sodium Chloride 0.9% 1,000 ML IV ONE (16:14)
[2017-06-12 16:28] LABS: RBC URINE < 1 /hpf (0-3); URINE BILIRUBIN NEGATIVE (NEGATIVE); URINE BLOOD NEGATIVE (NEGATIVE); URINE COLOR Yellow (YELLOW); URINE GLUCOSE (UA) NORMAL (Normal); URINE KETONE NEGATIVE (NEGATIVE); URINE LEUKOCYTE ESTERASE NEG Leu/uL (Negative); URINE PROTEIN NEGATIVE (NEGATIVE); WBC URINE < 1 /hpf (0-5)
[2017-06-12 16:40] LABS: BASO % 0.3 % (0.0-2.0); EOS # 0.3 K/uL (0.0-0.7); EOS % 1.9 % (0.0-4.0); HEMATOCRIT 46.8 % (35.0-51.0); LYMPH % 14.3 % (20.0-40.0); MEAN CELL VOLUME 93.6 fL (80.0-94.0); MEAN CORPUSCULAR HEMOGLOBIN 33.1 pg (27.0-31.0); MEAN CORPUSCULAR HGB CONC 35.3 g/dL (33.0-37.0); MEAN PLATELET VOLUME 7.6 fL (7.2-11.7); MONO % 7.1 % (0.0-10.0); WHITE BLOOD COUNT 13.8 K/uL (4.8-10.8)
[2017-06-12 16:54] LABS: CHLORIDE 94 mmol/L (98-107)
[2017-06-12 16:55] LABS: POTASSIUM 3.4 mmol/L (3.6-5.2); SODIUM 131 mmol/L (132-148)
[2017-06-12 16:57] LABS: ALB/GLOB RATIO 1.4 (1.0-2.1); ALKALINE PHOSPHATASE 77 U/L (38-126); AST/SGOT 468 U/L (17-59); BILIRUBIN,TOTAL 0.8 mg/dL (0.2-1.3); BLOOD UREA NITROGEN 4 mg/dL (9-20); CARBON DIOXIDE 19 mmol/L (22-30); GFR AFRICAN-AMERICAN > 60; TOTAL PROTEIN 8.4 g/dL (6.3-8.3)
[2017-06-12 16:58] LABS: ALCOHOL SERUM 40 mg/dl (0-10); ALT/SGPT 576 U/L (21-72); CALCIUM 8.8 mg/dl (8.6-10.4); GLUCOSE,RANDOM 97 mg/dL (75-110)
[2017-06-12] MEDS ORDERED: Folic Acid 1 MG, Thiamine 100 MG, Multivitamin (MVI) 10 ML in Dextrose 5% In Water 1,00... IV SCH (18:15)
--- NOTE | 2017-06-12 22:25 | PCM.BM ---
<Keiko Sage - Last Filed: 06/12/17 22:22> Treatment Plan Problems - Problems identified on initial assessmt Potential for ETOH withdrawal Date Initiated: 06/12/17 Time Initiated: 21:45 Assessment reference: NA Status: Active Treatment assets and liabiliti Patient Assests: cooperative, insightful, ADL independent, negotiates basic needs Patient Liabilities: substance abuse - Milieu Protocol Maintain good personal hygiene: daily Encourage regular showers, daily Remind patient to perform daily oral care, daily Assist patient to perform ADL's Maintain personal safety: every shift Educate patient to report safety concerns to staff, every shift Monitor environment for contraband/sharps Medication safety: Monitor for expected outcome, potential side effects: every shift, Assess barriers to learning: every shift, Assess readiness for medication education: every shift <Kari Pulido - Last Filed: 06/13/17 11:49> Family Contact Family involvement: Family/SO is involved Family contact: Patient agrees to contact - Goals for Treatment Patient goals for treatment: Complete detox and transition to long-term rehab. Discharge/Continuing Care - Education Needs Education Needs: Patient Medication, Patient Diagnosis/Disease Process, Patient Coping Skills, Patient Anger Management skills, Patient Placement options, Patient Community resources, Patient Health Practices/Safety (liver enzymes elevated) - Discharge Discharge Criteria: Free of agitation, Normal sleep pattern, Ability to care for self, No longer exhibiting s/s of withdrawal, Reduction of target symptoms Discharge to:: [facility], [facility]stance Abuse Rehab - Treatment Team Participation Patient/Family/SO Statement: 06/13/17 11:51 "I know outpatient doesn't work for me. I need inpatient rehab so I can actually do this..." Discussed with Family/SO: No Was Patient/Family/SO present at Treatment Team Meeting: Yes <Fernando Lainez - Last Filed: 06/16/17 11:00> - Diagnosis (1) Alcohol use disorder, severe, dependence Status: Acute Interventions: 06/16/17 11:00 * Assess 7x/week regarding severity of withdrawal * Educate regarding risks, benefits, side effects and alternatives of medications * Use Motivational Interviewing for abstinence * Use CBT for relapse prevention * Medication management for withdrawal symptoms * Encourage medication assisted treatment *
[2017-06-13] MEDS: Multiple Vitamins Tab PO SCH (11:08)
--- NOTE | 2017-06-13 14:49 | PCM.PSYCH ---
Initial Psychiatric Evaluation - Initial Psychiatric Evaluation Type of Admission: Voluntary Legal Status: Capacity Chief Complaint (in patient's own words): "I want to get clean doc, I cant be like this. Its time" History of Present Illness and Precipitating Events: Pt is known to the medical writer from a prior admission. Pt is a 31 year old male who presented to the ED on 06/12/2017 requesting alcohol detox. Pt is single and has 2 children, ages 5 and 7 who currently live with their mother. Pt currently lives alone and is currently unemployed. Pt states that he first started using alcohol at the age of 20. He reports currently drinking 20 shots a day until he losses consciousness. Pt has been to this detox facility previously with his last visit in April 2017. He denies ever attending a rehab program. Pt denies any other substance use. He currently smokes 1 pack of cigarettes a day. Pt denies any psychiatric history as well as any family psychiatric history. Pt is currently experiencing withdrawal symptoms such as nausea, vomiting and tremors. After care discussed. Pt states that "I know I can't keep living like this". He also reports "I know that outpatient and other programs don't work for me and at this point I need something more". He wants to attend an inpatient program because he "wants to get better". Pt is encouraged to speak with the counselors and the SW in order to learn about programs that are available. Current Medications: Active Medications Generic Name Dose Route Start Last Admin Trade Name Freq PRN Reason Stop Dose Admin Clonidine HCl 0.1 mg 06/12/17 22:24 Catapres PO Q4H PRN Symptoms of alcohol withdrawl Folic Acid 1 mg 06/13/17 10:00 06/13/17 11:08 Folic Acid PO 1 mg DAILY DEZ Administration Gabapentin 100 mg 06/13/17 10:00 06/13/17 13:17 Neurontin PO 100 mg TID DEZ Administration Hydroxyzine HCl 25 mg 06/12/17 22:37 Atarax PO Q6H PRN Anxiety Lorazepam 1 mg 06/12/17 22:24 Ativan PO Q4H PRN Symptoms of alcohol withdrawl Lorazepam 2 mg 06/13/17 12:00 06/13/17 11:08 Ativan PO 06/18/17 11:59 2 mg Q6H DEZ Administration Taper Multivitamins 1 tab 06/13/17 10:00 06/13/17 11:08 Hexavitamin PO 1 tab DAILY DEZ Administration Ondansetron HCl 4 mg 06/12/17 21:29 06/13/17 03:03 Zofran Tab PO 4 mg Q4 PRN Administration Nausea/Vomiting Thiamine HCl 100 mg 06/13/17 10:00 06/13/17 11:08 Vitamin B1 Tab PO 100 mg DAILY DEZ Administration Trazodone HCl 50 mg 06/12/17 22:24 Desyrel PO HS PRN Insomnia Past Psychiatric History - Past Psychiatric History Pertinent Medical Hx (Current Medical&Sleep Prob, Allergies): Allergies Allergy/AdvReac Type Severity Reaction Status Date / Time No Known Allergies Allergy Verified 04/29/17 22:47 No Known Home Med 06/12/17 Review of Systems - Gastrointestinal Gastrointestinal: Nausea, Vomiting - Neurological Neurological: Tremor - Psychiatric Psychiatric: UNREMARKABLE. absent: Hallucinations, Homicidal Ideation, Suicidal Ideation Mental Status Examination - Personal Presentation Personal Presentation: Looks stated age - Affect Affect: Broad - Motor Activity Motor Activity: Calm - Reliability in Providing Information Reliability in Providing Information: Good - Speech Speech: Organized, Relevant, Coherent - Mood Mood: Neutral - Formal Thought Process Formal Thought Process: No Impairment - Obsessions/Compulsions Obsessions: No Compulsions: No - Cognitive Functions Orientation: Person, Place, Situation, Time Sensorium: Alert Attention/Concentration: Attentive Estimate of Intelligence: Average Judgement: Intact, as evidence by: Insight regarding need for hospitalization Memory: Recent intact, as evidence by: Ability to recall events of the day, Remote intact, as evidenced by: Abilit to recall sig. life events - Strength & Assets Inventory Strength & Assets Inventory: Family support, Interests/hobbies, Life experience , Cooperative - Limitations Limitations: Living alone DSM 5 DX - DSM 5 DSM 5 Diagnosis: Alcohol use disorder, severe Alcohol withdrawal - Recommended/Plan of Treatment Treatment Recommendations and Plan of Treatment: Ativan detox Start: Folic acid 1mg PO daily Gabapentin 100mg PO TID Ativan Taper Thiamine 100mg PO daily Continue all other medications as needed Gabapentin for augmentation Attend groups and activities Supportive therapy and psychoeducation PA for abstinence CBT for relapse prevention Encourage MAT Refer to rehab or IOP Attend self-help groups as well 31 mins Projected ELOS: 4-5 days
[2017-06-14] MEDS: Multiple Vitamins Tab PO SCH (09:51)
[2017-06-14 11:57] LABS: CHLORIDE 100 mmol/L (98-107); POTASSIUM 3.4 mmol/L (3.6-5.2); SODIUM 136 mmol/L (132-148)
[2017-06-14 11:59] LABS: GFR AFRICAN-AMERICAN > 60
[2017-06-14 12:00] LABS: ALB/GLOB RATIO 1.3 (1.0-2.1); ALKALINE PHOSPHATASE 61 U/L (38-126); ALT/SGPT 385 U/L (21-72); AST/SGOT 236 U/L (17-59); BILIRUBIN,TOTAL 0.7 mg/dL (0.2-1.3); BLOOD UREA NITROGEN 10 mg/dL (9-20); CARBON DIOXIDE 24 mmol/L (22-30); GLUCOSE,RANDOM 115 mg/dL (75-110); TOTAL PROTEIN 7.7 g/dL (6.3-8.3)
[2017-06-14 12:01] LABS: CALCIUM 9.1 mg/dl (8.6-10.4)
--- NOTE | 2017-06-14 13:58 | PCM.PYCHPN ---
Psychiatric Progress Note - Psychiatric Progress Note Patient seen today, length of contact: 19 mins Patient Chief Complaint: "I'm alright" Problems Identified/Issues Discussed: The pt is seen, chart reviewed, case discussed with staff. Pt reports he slept well last night and feels rested. Pt complains of less tremors but is still sweating. Support given, CBT and FL used briefly No new symptoms reported, improving slowly and needs more time No SEs from medications, risks discussed. After care discussed. Pt reports that upon discharge he will attend [facility], which has already been set up for him. Pt seems happy about this stating " it sounds like a good plan to me". He wants to talk to his family to inform them of his plan. Pt is encouraged to do so. Medication Change: Yes (Detox meds change daily ) Medical Record Reviewed: Yes Mental Status Examination - Cognitive Function Orientation: Person, Place, Situation, Time Memory: Intact Attention: WNL Association: WN Fund of Knowledge: WNL - Mood Mood: Neutral - Affect Affect: Constricted - Speech Speech: Appropriate - Formal Thought Process Formal Thought Process: No Impairment - Suicidal Ideation Suicidal Ideation: No - Homicidal Ideation Homicidal Ideation: No Goal/Treatment Plan - Goal/Treatment Plan Need for Continued Stay: Remain at risks for inpatient hospitalization, Discharge may exacerbated symptoms Progress Toward Problem(s) and Goals/Treatment Plan: Ativan detox Continue all other medications as needed Gabapentin for augmentation Attend groups and activities Supportive therapy and psychoeducation FL for abstinence CBT for relapse prevention Encourage MAT Refer to rehab or IOP Attend self-help groups as well 19 mins Estimated Date of D/C: 06/18/17
[2017-06-15] MEDS: Multiple Vitamins Tab PO SCH (09:26)
--- NOTE | 2017-06-15 13:36 | PCM.PYCHPN ---
Psychiatric Progress Note - Psychiatric Progress Note Patient seen today, length of contact: 15 min Patient Chief Complaint: "I'm getting better" Problems Identified/Issues Discussed: The pt is seen, chart reviewed, case discussed with staff. Support given, CBT and MS used briefly No new symptoms reported, improving slowly and needs more time No SEs from medications, risks discussed. After care discussed - will go to [facility] Medication Change: Yes (Detox meds change daily ) Medical Record Reviewed: Yes Mental Status Examination - Cognitive Function Orientation: Person, Place, Situation, Time Memory: Intact Attention: WNL Association: WNL Fund of Knowledge: WNL - Mood Mood: Neutral - Affect Affect: Constricted - Speech Speech: Appropriate - Formal Thought Process Formal Thought Process: No Impairment - Suicidal Ideation Suicidal Ideation: No - Homicidal Ideation Homicidal Ideation: No Goal/Treatment Plan - Goal/Treatment Plan Need for Continued Stay: Remain at risks for inpatient hospitalization, Discharge may exacerbated symptoms Progress Toward Problem(s) and Goals/Treatment Plan: Ativan detox Continue all other medications as needed Gabapentin for augmentation Attend groups and activities Supportive therapy and psychoeducation MS for abstinence CBT for relapse prevention Encourage MAT Refer to rehab or IOP Attend self-help groups as well repeat cmp, mg due to abn labs Estimated Date of D/C: 06/18/17
[2017-06-16 06:17] VITALS: RESP 18
[2017-06-16] MEDS: Multiple Vitamins Tab PO SCH (09:20)
--- NOTE | 2017-06-16 15:05 | PCM.PYCHPN ---
Psychiatric Progress Note - Psychiatric Progress Note Patient seen today, length of contact: 15 min Patient Chief Complaint: I'm doing very well Problems Identified/Issues Discussed: Patient seen. Chart reviewed. Case discussed with the staff. Issues related to illness and treatment were discussed with the patient. Reported compliant with treatment with no adverse affects. Tolerating treatment very well. Patient reported feeling much better with the treatment, better sleep and mood, with mild withdrawal symptoms. At the time of evaluation, patient was awake alert oriented 3, had no delusions , no auditory or visual hallucinations, no suicidal ideations or homicidal ideations. Medical Problems: None reported Diagnostic Results: Reviewed DSM 5 Symptoms Update: Improving with treatment Medical Record Reviewed: Yes Mental Status Examination - Cognitive Function Orientation: Person, Place, Situation, Time Memory: Intact Attention: WNL Association: [facility] Fund of Knowledge: [facility] Decription of patient's judgement and insights: Fair - Mood Mood: Neutral - Affect Affect: Other (Appropriate) - Speech Speech: Appropriate - Formal Thought Process Formal Thought Process: No Impairment Psychotic Thoughts and Behaviors: None - Suicidal Ideation Suicidal Ideation: No - Homicidal Ideation Homicidal Ideation: No Goal/Treatment Plan - Goal/Treatment Plan Need for Continued Stay: Remain at risks for inpatient hospitalization, Discharge may exacerbated symptoms, Severe functional impairment Progress Toward Problem(s) and Goals/Treatment Plan: Patient education Supportive therapy Continue treatment as before Estimated Date of D/C: 06/18/17 - Smoking Cessation Smoking Cessation Initiated: No
[2017-06-16 17:45] LABS: BASO # 0.1 K/uL (0.0-0.2); BASO % 0.7 % (0.0-2.0); EOS # 0.8 K/uL (0.0-0.7); HEMATOCRIT 47.1 % (35.0-51.0); LYMPH # 2.3 K/uL (1.0-4.3); LYMPH % 19.8 % (20.0-40.0); MEAN CELL VOLUME 95.3 fL (80.0-94.0); MEAN CORPUSCULAR HEMOGLOBIN 32.6 pg (27.0-31.0); MEAN CORPUSCULAR HGB CONC 34.2 g/dL (33.0-37.0); MONO # 1.1 K/uL (0.0-0.8); MONO % 9.8 % (0.0-10.0); RED CELL DISTRIBUTION WIDTH 13.8 % (11.5-14.5); WHITE BLOOD COUNT 11.4 K/uL (4.8-10.8)
[2017-06-16 17:56] LABS: CHLORIDE 97 mmol/L (98-107)
[2017-06-16 17:57] LABS: POTASSIUM 4.1 mmol/L (3.6-5.2); SODIUM 135 mmol/L (132-148)
[2017-06-16 17:59] LABS: ALB/GLOB RATIO 1.1 (1.0-2.1); AST/SGOT 241 U/L (17-59); BILIRUBIN,TOTAL 0.4 mg/dL (0.2-1.3); BLOOD UREA NITROGEN 12 mg/dL (9-20); CARBON DIOXIDE 27 mmol/L (22-30); GFR AFRICAN-AMERICAN > 60; TOTAL PROTEIN 8.2 g/dL (6.3-8.3)
[2017-06-16 18:00] LABS: ALKALINE PHOSPHATASE 60 U/L (38-126); ALT/SGPT 449 U/L (21-72); CALCIUM 9.7 mg/dl (8.6-10.4); GLUCOSE,RANDOM 144 mg/dL (75-110); MAGNESIUM 1.8 mg/dL (1.6-2.3)
[2017-06-17] MEDS: Multiple Vitamins Tab PO SCH (09:54)
--- NOTE | 2017-06-17 16:03 | PCM.PYCHPN ---
Psychiatric Progress Note - Psychiatric Progress Note Patient seen today, length of contact: 15 min Patient Chief Complaint: I'm doing very well Problems Identified/Issues Discussed: Patient seen. Chart reviewed. Case discussed with the staff. Issues related to illness and treatment were discussed with the patient. Reported compliant with treatment with no adverse affects. Tolerating treatment very well. Patient reported feeling much better with the treatment, better sleep and mood, with mild withdrawal symptoms. Aftercare options discussed with the patient At the time of evaluation, patient was awake alert oriented 3, had no delusions , no auditory or visual hallucinations, no suicidal ideations or homicidal ideations. Medical Problems: None reported Diagnostic Results: Reviewed DSM 5 Symptoms Update: Improving with treatment Medication Change: No Medical Record Reviewed: Yes Mental Status Examination - Cognitive Function Orientation: Person, Place, Situation, Time Memory: Intact Attention: WNL Association: [facility] Fund of Knowledge: [facility] Decription of patient's judgement and insights: Fair - Mood Mood: Neutral - Affect Affect: Other (Appropriate) - Speech Speech: Appropriate - Formal Thought Process Formal Thought Process: No Impairment Psychotic Thoughts and Behaviors: None - Suicidal Ideation Suicidal Ideation: No - Homicidal Ideation Homicidal Ideation: No Goal/Treatment Plan - Goal/Treatment Plan Need for Continued Stay: Remain at risks for inpatient hospitalization, Discharge may exacerbated symptoms, Severe functional impairment Progress Toward Problem(s) and Goals/Treatment Plan: Patient education Supportive therapy Continue treatment as before Patient will go to [facility] for follow-up care after discharge from the hospital. Estimated Date of D/C: 06/18/17 - Smoking Cessation Smoking Cessation Initiated: No
[2017-06-18 06:46] VITALS: O2SAT 98
--- NOTE | 2017-06-18 08:49 | PCM.PYCHDC ---
Mental Status Examination - Mental Status Examination Orientation: Person, Place, Situation, Time Memory: Intact Mood: Anxious Affect: Constricted Speech: Appropriate Attention: WNL Concentration: WNL Association: WNL Fund of Knowledge: WNL Formal Thought Process: No Impairment Suicidal Ideation: No Current Homicidal Ideation?: No Discharge Summary - Discharge Note Reason for Hospitalization: Alcohol Withdrawal and detox Consultations:: List each consultation separately and include: 1. Reason for request. 2. Findings. 3. Follow-up Summary of Hospital Course include:: 1. Description of specific treatment plan utilized for patients during their course of treatmen. 2. Summarize the time- course for resolution of acute symptoms and/or regressed behaviors. 3. Describe issues identified and worked on during hospitalization. 4. Describe medication utilized. 5. Describe medical problems identified and treated. 6. Reassessment of suicide risk Summary of Hospital Course: The pt was admitted for alcohol withdrawal and detox and started on treatment with psychotherapy, support, psychoeducation and medications. KS and CBT used. The pt attended groups and activities, as well as milieu therapy. All the risks and benefits of medications are discussed and the patient understood and agreed. The pt completed Ativan Taper Pt still feels anxious Requested to have Rx written out so he can use at any pharmacy of his choice Will attend [facility] after discharge - Final Diagnosis (DSM 5) Condition upon Discharge: STABLE DSM 5: Alcohol Use Disorder- Severe, Dependent Alcohol withdrawal Depression - unspecified Disposition: REHAB FACILITY/REHAB UNIT Follow-up Treatment Plan: Continue below medications after discharge. Follow after care plan as discussed. Use relapse prevention skills Return to ER or call 911 if suicidal, homicidal or symptoms relapse. Stay away from stress, alcohol and drugs. See primary doctor regularly and get labs. Prescriptions/Medication Reconciliation: Gabapentin [Neurontin] 300 mg PO BID #60 cap Multivitamins [Hexavitamin] 1 tab PO DAILY #30 tab traZODone [Desyrel] 50 mg PO HS PRN #30 tab PRN Reason: Insomnia - Smoking Cessation Smoking Cessation Medication prescribed: No - Antipsychotic Medications Pt discharged on 2 or more routine antipsychotic medications: No
[2017-06-18] MEDS: Multiple Vitamins Tab PO SCH (09:45)
[2017-06-18 09:59] VITALS: BP 135/84; PULSE 88; TEMP 98.5
== END 2017-06-18 10:15 | DRG 751 ==
LOC: C.ER 15:39 → C.9E 18:03 → C.7D 19:22
PROVIDERS: ADMIT Psychiatry & Neurology Psychiatry; ATTEND Psychiatry & Neurology Psychiatry
PROC: HZ2ZZZZ Detoxification Services for Substance Abuse Treatment (ICD-10-PCS; principal; 2017-06-12)
PROC: HZ46ZZZ Group Counseling for Substance Abuse Treatment, Psychoeducation (ICD-10-PCS; 2017-06-12)
PROC: HZ59ZZZ Individual Psychotherapy for Substance Abuse Treatment, Supportive (ICD-10-PCS; 2017-06-12)
DX: F10.230 Alcohol dependence with withdrawal, uncomplicated (principal); F32.9 Major depressive disorder, single episode, unspecified; F17.210 Nicotine dependence, cigarettes, uncomplicated

== ENCOUNTER 2018-04-22 21:19 | Inpatient (IN) | payer OTHER ==
--- NOTE | 2018-04-22 21:50 | C.PDOC ---
History Of Present Illness <aKrla Escobar - Last Filed: 04/23/18 00:46> <Luciana Dobbs - Last Filed: 04/23/18 04:46> 32 year old male presents to the ED for psychiatric evaluation. Patient reports history of alcohol abuse. He underwent detox and was sober for one year. Patient recently thought to have one drink thinking he would be able to control himself, but was unable to. Patient admits he has been binge drinking for the past week. He also reports positive suicidal and homicidal ideation. Patient denies any other substance abuse and has no other complaints at this time. (Elfego Escobarglenn Hna) History Per: Patient History/Exam Limitations: intoxication Onset/Duration Of Symptoms: Days Current Symptoms Are (Timing): Still Present Suicide/Self Injury Attempted (Context): None Modifying Factor(s): Alcohol Associated Symptoms: Suicidal Thoughts Involuntary Hold By: None Recent travel outside of the [place]: No Additional History Per: Patient <Karla Escobar - Last Filed: 04/23/18 00:46> <Luciana Dobbs - Last Filed: 04/23/18 04:46> Time Seen by Provider: 04/22/18 21:34 Chief Complaint (Nursing): Psychiatric Evaluation Past Medical History Reviewed: Historical Data, Nursing Documentation, Vital Signs - Medical History PMH: Anxiety, Depression Denies: Diabetes, Hepatitis, HIV, HTN, Chronic Kidney Disease, Seizures, Sexually Transmitted Disease Surgical History: No Surg Hx Family History: States: Unknown Family Hx - Social History Hx Alcohol Use: Yes Hx Substance Use: No - Immunization History Hx Tetanus Toxoid Vaccination: No Hx Influenza Vaccination: No Hx Pneumococcal Vaccination: No <Karla Escobar - Last Filed: 04/23/18 00:46> Vital Signs: Last Vital Signs Temp 97.5 F L 04/23/18 03:00 Pulse 85 04/23/18 03:00 Resp 20 04/23/18 03:00 BP 95/45 L 04/23/18 03:00 Pulse Ox 97 04/23/18 03:00 - [facility] DETOXIFICATION SERVICES FOR SUBSTANCE ABUSE TREATMENT (06/12/17) GROUP SUPERINTENDENT PIER FOR SUBSTANCE ABUSE TREATMENT, PSYCHOEDUCATION (06/12/17) INDIV PSYCHOTHERAPY FOR SUBSTANCE ABUSE TREATMENT, SUPPORT (06/12/17) Review Of Systems Psych: Positive for: Suicidal ideation, Other (homicidal ideation, positive alcohol intoxication ) <Karla Escobar - Last Filed: 04/23/18 00:46> Physical Exam - Physical Exam Appears: Non-toxic, No Acute Distress, Other (visibly intoxicated ) Skin: Normal Color, Warm, Dry Head: Atraumatic, Normacephalic Eye(s): bilateral: Normal Inspection Oral Mucosa: Moist, Other (alcohol on breath ) Neck: Supple Chest: Symmetrical, No Deformity, No Tenderness Cardiovascular: Rhythm Regular Respiratory: Normal Breath Sounds, No Accessory Muscle Use Extremity: Normal ROM, Capillary Refill (less than 2 seconds ) Neurological/Psych: Other (arousable to touch and verbal stimuli ) Gait: Unsteady <Karla Escobar - Last Filed: 04/23/18 00:46> ED Course And Treatment - Laboratory Results Result Diagrams: 04/22/18 22:34 04/22/18 22:34 O2 Sat by Pulse Oximetry: 98 (on RA) Pulse Ox Interpretation: Normal <Karla Escobar - Last Filed: 04/23/18 00:46> - Laboratory Results Result Diagrams: 04/22/18 22:34 04/22/18 22:34 <Luciana Dobbs - Last Filed: 04/23/18 04:46> Medical Decision Making <Karla Escobar - Last Filed: 04/23/18 00:46> <Luciana Dobbs - Last Filed: 04/23/18 04:46> Medical Decision Making: Patient seen and examined. Initially calm, but then became aggressive and combative, threatening staff. 2mg ativan/5mg haldol IM given and patient placed in 4-point restraints to ensure safety of ED staff. Labs and urine ordered. Crisis evaluated patient. Patient medically cleared, pending dispo. (Karla Escobar) Disposition <Karla Escobar - Last Filed: 04/23/18 00:46> Discussed With : Osman Hdez Comment[facility] at 4:45 AM Doctor Will See Patient In The: Hospital Counseled Patient/Family Regarding: Studies Performed, Diagnosis - Disposition Disposition Time: 01:00 - POA Present On Arrival: None <Luciana Dobbs - Last Filed: 04/23/18 04:46> - Disposition Disposition: HOSPITALIZED Condition: FAIR Forms: [facility] ([employer]) - Clinical Impression Clinical Impression: Major depression, Alcohol intoxication, Alcohol abuse - Scribe Statement The provider has reviewed the documentation as recorded by the Scribe (Tonya Troncoso) <Karla Escobar - Last Filed: 04/23/18 00:46> <Luciana Dobbs - Last Filed: 04/23/18 04:46> - Scribe Statement Provider Attestation: All medical record entries made by the Scribe were at my direction and personally dictated by me. I have reviewed the chart and agree that the record accurately reflects my personal performance of the history, physical exam, medical decision making, and the department course for this patient. I have also personally directed, reviewed, and agree with the discharge instructions and disposition. (Karla Escobar) Decision To Admit <Karla Escobar - Last Filed: 04/23/18 00:46> - Pt Status Changed To: Hospital Disposition Of: Inpatient - Admit Certification Admit to Inpatient:: After my assessment, the patient will require hospitalization for at least two midnights. This is because of the severity of symptoms shown, intensity of services needed, and/or the medical risk in this patient being treated as an outpatient. - InPatient: Physician Admission Certification: I certify that this patient requires 2 or more midnights of care for the following reason:: After my assessment, the patient will require hospitalization for at least two midnights. This is because of the severity of symptoms shown, intensity of services needed, and/or the medical risk in this patient being treated as an outpatient. - . Bed Request Type: Psychiatry Admitting Physician: Osman Hdez <Luciana Dobbs - Last Filed: 04/23/18 04:46> - . Patient Diagnosis: Major depression, Alcohol intoxication, Alcohol abuse
[2018-04-22 22:38] LABS: BASO % 0.3 % (0.0-2.0); EOS # 0.4 K/uL (0.0-0.7); EOS % 3.8 % (0.0-4.0); LYMPH # 3.6 K/uL (1.0-4.3); LYMPH % 35.1 % (20.0-40.0); MEAN CORPUSCULAR HEMOGLOBIN 30.2 pg (27.0-31.0); MEAN CORPUSCULAR HGB CONC 35.1 g/dL (33.0-37.0); MEAN PLATELET VOLUME 7.2 fL (7.2-11.7); MONO # 0.7 K/uL (0.0-0.8); MONO % 7.2 % (0.0-10.0); NEUT # 5.5 K/uL (1.8-7.0); NEUT % 53.6 % (50.0-75.0); NRBC % 0.1 % (0.0-2.0); RBC 5.65 Mil/uL (4.40-5.90); RED CELL DISTRIBUTION WIDTH 14.4 % (11.5-14.5); WHITE BLOOD COUNT 10.3 K/uL (4.8-10.8)
[2018-04-22 22:50] LABS: ALB/GLOB RATIO 1.5 (1.0-2.1); ALBUMIN 4.7 g/dL (3.5-5.0); ALT/SGPT 27 U/L (21-72); AST/SGOT 23 U/L (17-59); BLOOD UREA NITROGEN 5 mg/dL (9-20); CALCIUM 8.2 mg/dl (8.6-10.4); GFR NON-AFRICAN AMERICAN > 60
[2018-04-22 23:59] LABS: SQUAMOUS EPITHIAL 5 /hpf (0-5); URINE BACTERIA RARE (<OCC); URINE BILIRUBIN NEGATIVE (NEGATIVE); URINE BLOOD NEGATIVE (NEGATIVE); URINE CLARITY Clear (Clear); URINE COLOR Straw (YELLOW); URINE GLUCOSE (UA) NORMAL (Normal); URINE LEUKOCYTE ESTERASE NEG Leu/uL (Negative); URINE PROTEIN 1+ mg/dL (NEGATIVE); URINE UROBILINOGEN NORMAL mg/dL (0.2-1.0)
[2018-04-23 00:11] LABS: BARBITURATES, UR NEGATIVE (NEGATIVE); BENZODIAZEPINES, UR NEGATIVE (NEGATIVE); OPIATES, UR NEGATIVE (NEGATIVE); PHENCYCLIDINE, UR NEGATIVE (NEGATIVE)
--- NOTE | 2018-04-23 06:49 | PCM.BM ---
<Maria Alejandra Bone - Last Filed: 04/23/18 06:48> Treatment Plan Problems - Problems identified on initial assessmt Suicidal ideation Date Initiated: 04/23/18 Time Initiated: 06:00 Assessment reference: NA Status: Active Treatment assets and liabiliti Patient Assests: cooperative, insightful, ADL independent, negotiates basic needs Patient Liabilities: live alone - Milieu Protocol Maintain good personal hygiene: daily Encourage regular showers, daily Remind patient to perform daily oral care, daily Assist patient to perform ADL's Conduct patient checks and document Observation sheet: Q15 minutes Maintain personal safety: every shift Educate patient to report safety concerns to staff, every shift Monitor environment for contraband/sharps Medication safety: Monitor for expected outcome, potential side effects: every shift, Assess barriers to learning: every shift, Assess readiness for medication education: every shift <SusienoéAda - Last Filed: 04/24/18 12:18> Family Contact Family involvement: Family/SO is involved Family contact: Patient declines to allow family contact at present - Goals for Treatment Patient goals for treatment: "I need a therapist." Discharge/Continuing Care - Education Needs Education Needs: Patient Medication, Patient Coping Skills - Discharge Discharge Criteria: Tolerates medication w/o severe side effects, No longer exhibiting s/s of withdrawal, Reduction of target symptoms Discharge to:: Home, With Family - Treatment Team Participation Discussed with Family/SO: No Was Patient/Family/SO present at Treatment Team Meeting: Yes
--- NOTE | 2018-04-23 10:21 | PCM.PSYCH ---
Initial Psychiatric Evaluation - Initial Psychiatric Evaluation Type of Admission: Voluntary Legal Status: Capacity Chief Complaint (in patient's own words): "I'm hearing voices" History of Present Illness and Precipitating Events: Pt is seen, chart reviewed, and case discussed with staff. This is 32 y/o HM, S, who lives with his 2 daughters age 6 and 8, works in maintenance, was escorted to the ED with depressed mood, suicidal ideation and homicidal ideation. Pt denies any past history of any inpatient psychiatric hospitalizations and denies any history of follow up with any psychiatrist. However, he reports h/o detox at , last year. Pt presented in the ED with an alcohol level of 355. When he arrived he made some suicidal and homicidal statements. It was also reported that he threatened the first qualified craft worker electrician who went to see him. He became aggressive and agitated in the ED as a result he was put on four points restraints. Reportedly, aunt said she went by the house today because she had not seen him in a while. She said when she arrived he was intoxicated and had whiskey bottles laying around the house. He feels very depressed and about two weeks ago he decided to go on a drinking binge because the pt wanted to test myself to see how much he could drink. He said he couldn't stop drinking for the past two weeks, drinking 1/5 bottle of beena as well as beer; prior to this episode pt was sober for about 9 months. However, pt appeared very depressed in the unit. He reports depressed mood, feelings of hopelessness, worthlessness and helplessness. He also reports poor sleep and poor appetite. Patient reports withdrawal symptoms including abdominal cramps, nausea, anxiety, shakes, headaches and sweating. He has never attempted suicide but has thought about it before, no specific plan. Admits to hearing voices and having visual hallucinations, which got worse when he stopped drinking last time. In the past couple of days pt has been experiencing DT's once he stopped drinking and is currently going through withdrawal symptoms. He is also feeling very paranoid and anxious. Denies any drug use. Medical hx: denies Current Medications: Active Medications Generic Name Dose Route Start Last Admin Trade Name Freq PRN Reason Stop Dose Admin Pneumococcal Polyvalent Vaccine 0.5 ml 04/25/18 10:00 Pneumovax 23 Vaccine IM 04/25/18 10:01 .ONCE ONE Past Psychiatric History - Past Psychiatric History Previous Treatment History: Inpatient At [facility]: [facility] Pertinent Medical Hx (Current Medical&Sleep Prob, Allergies): Allergies Allergy/AdvReac Type Severity Reaction Status Date / Time No Known Allergies Allergy Verified 04/22/18 21:29 Gabapentin [Neurontin] 300 mg PO BID #60 cap 06/18/17 Multivitamins [Hexavitamin] 1 tab PO DAILY #30 tab 06/18/17 traZODone [Desyrel] 50 mg PO HS PRN #30 tab 06/18/17 Review of Systems - Review of Systems All systems: reviewed and no additional remarkable complaints except - Psychiatric Psychiatric: Anxiety, Auditory Hallucinations, Change in Appetite, Depression, Paranoia, Suicidal Ideation, Visual Hallucinations Mental Status Examination - Personal Presentation Personal Presentation: Looks stated age - Affect Affect: Constricted, Blunted, Depressed - Motor Activity Motor Activity: Calm - Reliability in Providing Information Reliability in Providing Information: Poor, due to altered mood - Speech Speech: Organized, Relevant, Coherent - Mood Mood: Depressed, Anxious - Formal Thought Process Formal Thought Process: Hallucinations, Delusions, Paranoia - Hallucinations/Delusions Hallucinations: Visual, Auditory - Obsessions/Compulsions Obsessions: None Compulsions: None - Cognitive Functions Orientation: Person, Place, Situation, Time Sensorium: Alert Attention/Concentration: Attentive Abstract Thinking: [place] Estimate of Intelligence: Below average Judgement: Imparied, as evidence by: Poor judgement, Imparied, as evidence by: Lack of insight into illness Memory: Recent intact, as evidence by: Ability to recall events of the day, Remote intact, as evidenced by: Abilit to recall sig. life events - Risk Risk: Suicidal, Withdrawal, Diminished functioning - Strength & Assets Inventory Strength & Assets Inventory: Employment status - Limitations Limitations: Living alone DSM 5 DX - DSM 5 DSM 5 Diagnosis: Major depressive disorder recurrent severe with psychotic features Alcohol use disorder severe Alcohol withdrawal - Recommended/Plan of Treatment Treatment Recommendations and Plan of Treatment: Major depressive disorder recurrent severe with psychotic features -CBT -Psychoeducation -Supportive therapy, group therapy -Zoloft 50 mg by mouth daily -Gabapentin for augmentation -Trazodone for insomnia -Hydroxyzine for anxiety Alcohol use disorder severe Alcohol withdrawal -CBT -Psychoeducation -Supportive therapy, individual therapy -Librium taper -MVI/Thiamine/Folic Acid - Smoking Cessation Smoking Cessation Initiated: No
[2018-04-23] MEDS ORDERED: Aluminum Hydroxide/Magnesium Hydroxide Susp (30 mL) PO PRN (10:24)
[2018-04-23] MEDS ORDERED: Benzocaine/Menthol (Cepacol) Lozenge PO PRN (10:24)
[2018-04-23] MEDS: Multiple Vitamins Tab PO SCH (11:18)
[2018-04-24] MEDS: Multiple Vitamins Tab PO SCH (09:35)
--- NOTE | 2018-04-24 14:56 | PCM.PYCHPN ---
Psychiatric Progress Note - Psychiatric Progress Note Patient seen today, length of contact: 17 min Patient Chief Complaint: "I feel better" Problems Identified/Issues Discussed: The pt is seen, chart reviewed, case discussed with staff. Pt says that his mood is better, his withdrawal symptoms have improved a lot he mentions. Says that he slept well and that his appetite is good. Denies auditory or visual hallucinations, denies SI/HI, or paranoia. The pt is compliant with medications and reports no side-effects. Symptoms are improving but needs more time to stabilize. Pt attends groups and activities. Support given, psycho-education provided. After care discussed. Mental Status Examination - Cognitive Function Orientation: Person, Place, Situation, Time Memory: Intact Attention: WNL Concentration: WNL Association: WNL Fund of Knowledge: WNL - Mood Mood: Anxious - Affect Affect: Constricted, Blunted - Speech Speech: Appropriate - Formal Thought Process Formal Thought Process: Paranoia - Suicidal Ideation Suicidal Ideation: No - Homicidal Ideation Homicidal Ideation: No Goal/Treatment Plan - Goal/Treatment Plan Progress Toward Problem(s) and Goals/Treatment Plan: Continue medications Support and psychoeducation daily Attend groups and activities daily After care planning by ELIAN 17 min
[2018-04-24 16:45] VITALS: O2SAT 98
[2018-04-25] MEDS ORDERED: Pneumococcal 23-Valent Vaccine IM ONE (10:00)
[2018-04-25] MEDS: Multiple Vitamins Tab PO SCH (10:01)
--- NOTE | 2018-04-25 11:01 | PCM.PYCHPN ---
Psychiatric Progress Note - Psychiatric Progress Note Patient seen today, length of contact: 17 min Patient Chief Complaint: "I'm feeling better" Problems Identified/Issues Discussed: Patient seen and evaluated, chart reviewed and discussed with the nurse. Staff reports pt is improving. He reports improvement in his mood and irritability. He reports improvement in the withdrawal symptoms. He denies any AVH or any SI/HI. Patient is compliant with medications and denies any side effects. Symptoms are improving but need more time to stabilize. Support and psychoeducation given. Medication Change: Yes Medical Record Reviewed: Yes Mental Status Examination - Cognitive Function Orientation: Person, Place, Situation, Time Memory: Intact Attention: WNL Concentration: WNL Association: WNL Fund of Knowledge: Poor - Mood Mood: Anxious - Affect Affect: Constricted, Blunted - Speech Speech: Appropriate - Formal Thought Process Formal Thought Process: No Impairment - Suicidal Ideation Suicidal Ideation: No - Homicidal Ideation Homicidal Ideation: No Goal/Treatment Plan - Goal/Treatment Plan Need for Continued Stay: Severe depression anxiety, Severe functional impairment Progress Toward Problem(s) and Goals/Treatment Plan: Major depressive disorder recurrent severe with psychotic features -CBT -Psychoeducation -Supportive therapy, group therapy -Zoloft 100 mg by mouth daily -Gabapentin for augmentation -Trazodone for insomnia -Hydroxyzine for anxiety Alcohol use disorder severe Alcohol withdrawal -CBT -Psychoeducation -Supportive therapy, individual therapy -Librium taper -MVI/Thiamine/Folic Acid
[2018-04-26 06:53] VITALS: BP 127/82; PULSE 63; RESP 18; TEMP 97.9
[2018-04-26] MEDS: Multiple Vitamins Tab PO SCH (09:40)
--- NOTE | 2018-04-26 09:54 | PCM.PYCHDC ---
Mental Status Examination - Mental Status Examination Orientation: Person, Place, Situation, Time Memory: Intact Mood: Neutral Affect: Constricted Speech: Soft Attention: WNL Concentration: WNL Association: WNL Fund of Knowledge: WNL Formal Thought Process: No Impairment Description of patient's judgement and insight: good, fair Psychotic Thoughts and Behaviors: denies any AVH Suicidal Ideation: No Current Homicidal Ideation?: No Discharge Summary - Discharge Note Reason for Hospitalization: Pt is seen, chart reviewed, and case discussed with staff. This is 32 y/o HM, S, who lives with his 2 daughters age 6 and 8, works in maintenance, was escorted to the ED with depressed mood, suicidal ideation and homicidal ideation. Pt denies any past history of any inpatient psychiatric hospitalizations and denies any history of follow up with any psychiatrist. However, he reports h/o detox at , last year. Pt presented in the ED with an alcohol level of 355. When he arrived he made some suicidal and homicidal statements. It was also reported that he threatened the first offal worker who went to see him. He became aggressive and agitated in the ED as a result he was put on four points restraints. Reportedly, aunt said she went by the house today because she had not seen him in a while. She said when she arrived he was intoxicated and had whiskey bottles laying around the house. He feels very depressed and about two weeks ago he decided to go on a drinking binge because the pt wanted to test myself to see how much he could drink. He said he couldn't stop drinking for the past two weeks, drinking 1/5 bottle of beena as well as beer; prior to this episode pt was sober for about 9 months. However, pt appeared very depressed in the unit. He reports depressed mood, feelings of hopelessness, worthlessness and helplessness. He also reports poor sleep and poor appetite. Patient reports withdrawal symptoms including abdominal cramps, nausea, anxiety, shakes, headaches and sweating. He has never attempted suicide but has thought about it before, no specific plan. Admits to hearing voices and having visual hallucinations, which got worse when he stopped drinking last time. In the past couple of days pt has been experiencing DT's once he stopped drinking and is currently going through withdrawal symptoms. He is also feeling very paranoid and anxious. Consultations:: List each consultation separately and include: 1. Reason for request. 2. Findings. 3. Follow-up Summary of Hospital Course include:: 1. Description of specific treatment plan utilized for patients during their course of treatmen. 2. Summarize the time- course for resolution of acute symptoms and/or regressed behaviors. 3. Describe issues identified and worked on during hospitalization. 4. Describe medication utilized. 5. Describe medical problems identified and treated. 6. Reassessment of suicide risk Summary of Hospital Course: During the course of his stay, patient (pt) started progressively improving and no longer remained irritable, depressed, and suicidal. Neurontin and zoloft were started and pt showed a very good response. His mood and anxiety were improved and he started attending groups and meetings and started socializing. Patient denied any feelings of hopelessness, helplessness, and worthlessness, denied any problem with the sleep or appetite, denied suicidal ideation or homicidal ideation. Pt denied any auditory or visual hallucinations. He denied any withdrawal symptoms. Pt was treated with medications along with supportive therapy, milieu therapy and group therapy. Some changes were made in his current medications and patient was discharged on following medications. He tolerated these medications very well and denied any side effects. - Final Diagnosis (DSM 5) Condition upon Discharge: FAIR DSM 5: Major depressive disorder recurrent severe with psychotic features Alcohol use disorder severe Alcohol withdrawal Disposition: HOME/ ROUTINE Follow-up Treatment Plan: Followup: He was discharged to follow up with an IOP on his own. Education: Pt was educated and counseled about the risks and benefits of taking and not taking medications. Pt was educated and counseled about the risks of drinking and abusing drugs. Pt was educated and counseled to go to the ER or call 911 if pt develop suicidal ideation or homicidal ideation, worsening of symptoms or severe side effects of the meds. Prescriptions/Medication Reconciliation: Gabapentin [Neurontin] 300 mg PO BID #60 cap Sertraline [Zoloft] 100 mg PO DAILY #30 tab traZODone [Desyrel] 50 mg PO HS PRN #30 tab PRN Reason: Insomnia - Smoking Cessation Smoking Cessation Medication prescribed: No - Antipsychotic Medications Pt discharged on 2 or more routine antipsychotic medications: No
== END 2018-04-26 11:59 | disposition home or self-care (01) | DRG 430 ==
LOC: C.ER 21:19 → C.5E 04-23 04:44
DX: F33.3 Major depressive disorder, recurrent, severe with psychotic symptoms (principal); F10.230 Alcohol dependence with withdrawal, uncomplicated; R45.850 Homicidal ideations; G47.00 Insomnia, unspecified; F41.9 Anxiety disorder, unspecified; Y90.8 Blood alcohol level of 240 mg/100 ml or more; Z78.1 Physical restraint status; F10.220 Alcohol dependence with intoxication, uncomplicated